=== PATIENT | female | born 1990 | race Caucasian/White ===

== ENCOUNTER 2023-06-14 08:25 | Observation (INO) | payer MEDICAID, SELFPAY ==
--- NOTE | ~2023-06-14 | CT_ITS ---
EXAMINATION: CT ABDOMEN AND PELVIS WITH CONTRAST CLINICAL INFORMATION: 32-year-old female with right lower quadrant abdominal pain COMPARISON: None available. TECHNIQUE: Multidetector volumetric images were obtained from the superior aspect of the liver through the pubic symphysis following administration 85 mL of Omnipaque 350 intravenous contrast. Sagittal and coronal reformatted images were obtained on the technologist's workstation. Oral contrast: No This CT examination was performed using dose optimization techniques as appropriate, variously including the following: *Automated exposure control *Adjustment of mA and/or kV according to patient size (this includes techniques or standardized protocols for targeted exams where dose is matched to indication/reason for exam; i.e. extremities or head) *Use of iterative reconstruction technique DLP: 452 mGy-cm FINDINGS: LUNG BASES: The visualized lung bases are unremarkable. LIVER, GALLBLADDER, AND BILIARY TREE: The liver is enlarged of normal shape and attenuation. No focal hepatic lesion or biliary ductal dilatation is present. There is cholelithiasis with large circumferentially calcified stone in the lumen of gallbladder, measured 2.0 x 1.7 cm. There is no evidence of cholecystitis. CBD is not dilated. PANCREAS: There is mildly dilated pancreatic duct, measured in the body 0.4 cm SPLEEN: Unremarkable. ADRENAL GLANDS: Unremarkable. KIDNEYS AND URETERS: The kidneys are normal in size, shape, and attenuation. No hydronephrosis, hydroureter, or calculi seen. No perinephric stranding. BLADDER: Unremarkable. GASTROINTESTINAL TRACT: The small and large bowel are unremarkable. The appendix is borderline measured between 0.7 and 1.0 cm not well seen and surrounded by hazy mesentery (see images 31-34 series 7.) Findings are suspicious for acute appendicitis. Small bowel loops are mildly dilated most likely due to ileus. Mesentery in the right lower abdomen and pelvis is hazy. There is no mesenteric lymphadenopathy. ABDOMINAL WALL: No significant hernia is appreciated. LYMPH NODES: Normal. VASCULAR: Unremarkable. PELVIC VISCERA: Uterus is edematous with mildly thickened endometrial, with fluid within the endometrial. There is no fluid in cul-de-sac. Right adnexa revealed 2.6 x 2.0 cm cyst. OSSEOUS STRUCTURES: There are degenerative changes at the level of L5-S1 CT/CT abdomen pelvis w IV con IMPRESSION: 1. Findings suspicious for acute appendicitis. 2. Cholelithiasis without evidence of cholecystitis. 3. Right adnexal cyst. 4. Mild hepatomegaly. 5. Mildly dilated pancreatic duct. Fleischner guidelines were followed.
[2023-06-14 08:41] VITALS: BP 117/59; PULSE 76; RESP 16; TEMP 36.9; O2SAT 97; BMI 25.2
[2023-06-14 09:01] LABS: MANUAL DIFF FLAG NO
[2023-06-14 09:02] LABS: Basophils Percent Auto 0.2 % (0-2); Eosinophils Absolute Auto 0.1 X10*3/uL (0.0-0.4); Eosinophils Percent Auto 0.8 % (0-4); Hematocrit 33.1 % (37.0-47.0); Hemoglobin 11.1 g/dl (12.0-16.0); Imm Gran Abs Auto 0.06 X10*3/uL (0.00-0.03); Imm Gran Pct Auto 0.4 % (0.0-0.4); Lymphocytes Absolute Auto 2.2 X10*3/uL (1.2-4.9); Lymphocytes Percent Auto 13.3 % (20-40); Mean Corpuscular HGB Conc 33.5 g/dl (31.0-35.0); Mean Corpuscular Hemoglobin 29.8 pg (27.0-33.0); Mean Platelet Volume 9.2 fL (9.4-12.3); Monocytes Absolute Auto 0.7 X10*3/uL (0.1-1.2); Monocytes Percent Auto 3.9 % (2-11); Neutrophils Absolute Auto 13.5 x10*3/uL (2.0-8.3); Neutrophils Percent Auto 81.4 % (45-73); Platelet Count 276 X10*3/uL (160-400); Red Blood Count 3.72 X10*6/uL (4.20-5.50); Red Cell Distribution Width 12.4 % (11.0-16.0); White Blood Count 16.6 X10*3/uL (4.8-10.8)
--- NOTE | 2023-06-14 09:04 | ED_ITS ---
HPI - Abdominal Pain General Chief Complaint: General Medical Stated Complaint: R Side Lower Abd Pain to Back Time Seen by Provider: 06/14/23 08:35 Source: patient Mode of arrival: ambulatory Limitations: no limitations History of Present Illness HPI narrative: 32 yo female with no sig PMH notes she is due for her menses and prior to that she normally has lower abdominal pain but this seems much worse. She has no dysuria. For the past few days she has RUQ pain which is new it wraps around the back with nausea and she cannot get comfortable and she cannot eat. This has never happened before. She has no diarrhea and no fevers she just feels terrible. She wants to know if she is too she has a new sexual partner but no vaginal discharge. She is not on OCPs. Her grandmother saw her today and told her she looks ill and needs to get checked out. MD elicited complaint: abdominal pain Pertinent past history: none Onset (ago): day(s) (3) Pain Consistency: constant Location: RUQ and RLQ Severity: moderate Quality: stabbing Radiation: R flank Migration to: no migration Exacerbating factors: eating Relieving factors: nothing Associated symptoms: nausea Related Data Allergies Allergy/AdvReac Type Severity Reaction Status Date / Time No Known Allergies Allergy Verified 06/14/23 08:43 Review of Systems Review of Systems Constitutional : No Weight loss, No Fever, No Chills ENT/Mouth : No sore throat, No Rhinorrhea Eyes: No Swelling, No Redness Cardiovascular : No Chest Pain, No SOB, NoEdema Respiratory : No Cough, No Sputum, No Wheezing Gastrointestinal : Positive Nausea, no Vomiting, no Diarrhea, positive abdominal Pain, No Hematochezia, No Melena Genitourinary : No Dysuria, No Urinary Frequency, No Hematuria, No Urgency Musculoskeletal : No joint pain, No Myalgias, No Joint Swelling Skin : No Skin Lesions, No rash Neuro : No Weakness, No Numbness, No Dizziness, No Headache Psych : No Anxiety/Panic, No Depression Heme/Lymph: No Bruising, No Lymphadenopathy Endocrine : No Polyuria, No Polydipsia All other systems reviewed and are negative. [facility] Past Medical History Attestation statement: The following information was validated with the patient. Medical History Painful menstrual periods Social History Social History (Updated 06/14/23 @ 09:08 by Karena Ashley DO) Patient Tobacco Use Status: Never used Tobacco Advance Directives: No Advance Directives Information Provided: Yes Physical Exam ED Vital Signs: Vital Signs - 24 hr 06/14/23 08:41 Temperature 98.5 F Pulse Rate 76 Respiratory Rate 16 Blood Pressure 117/59 L Pulse Oximetry 97 Oxygen Delivery Method Room Air BMI result Body Mass Index 25.2 Appearance: Alert. Oriented X3. No acute distress. Eyes: Pupils equal, round and reactive to light. ?scleral icterus ENT: Pharynx normal. Neck: Normal inspection. Neck supple. CVS: Normal heart rate and rhythm. Pulses normal. Respiratory: No respiratory distress. Breath sounds normal. Abdomen: Soft and moderate RLQ ttp with guarding no rebound and moderate RUQ pain Skin: Skin warm and dry. pale skin color. Normal skin turgor. Extremities: No lower extremity edema. No calf ttp Neuro: Oriented X 3. No motor deficit. No sensory deficit. Course Course Course Narrative: IV morphine for pain improved Medical Decision Making Medical Decision Making MDM Narrative: 32 yo female with no sig PMH no surgeries here with c/o RUQ and RLQ pain x 3 days worsening she tried to ignore it but feels awful now with nausea and not able to eat. She has no fevers, this has never happened before. She is asking for STI testing but no symptoms. At this time labs, IV morphine for pain, CT scan for possible appendicitis/cholecystitis. Differential Diagnosis Differential Diagnoses: The differential diagnosis associated with the presentation includes renal colic, appendicitis, pyelo, biliary colic Admission/Observation Consideration of admission/observation: Escalation of care including admission/observation considered admit Consult Healthcare Provider Management of the patient was discussed with: Fire Crew Worker (Dr. Wood to admit) Lab Data [facility] Lab Attestation statement: I reviewed the patient's lab results. 06/14/23 08:57 06/14/23 08:57 Labs: Lab Results 06/14/23 06/14/23 Range/Units 08:57 09:08 WBC 16.6 H (4.8-10.8) X10*3/uL RBC 3.72 L (4.20-5.50) X10*6/uL Hgb 11.1 L (12.0-16.0) g/dl Hct 33.1 L (37.0-47.0) % MCV 89.0 (80.0-98.0) fL MCH 29.8 (27.0-33.0) pg MCHC 33.5 (31.0-35.0) g/dl RDW 12.4 (11.0-16.0) % Plt Count 276 (160-400) X10*3/uL MPV 9.2 L (9.4-12.3) fL Immature Gran % (Auto) 0.4 (0.0-0.4) % Neut % (Auto) 81.4 H (45-73) % Lymph % (Auto) 13.3 L (20-40) % [place] % (Auto) 3.9 (2-11) % Eos % (Auto) 0.8 (0-4) % Baso % (Auto) 0.2 (0-2) % Lymph # (Auto) 2.2 (1.2-4.9) X10*3/uL [place] # (Auto) 0.7 (0.1-1.2) X10*3/uL Eos # (Auto) 0.1 (0.0-0.4) X10*3/uL Baso # (Auto) 0.0 (0.0-0.2) X10*3/uL Abs Immat Gran (auto) 0.06 H (0.00-0.03) X10*3/uL Absolute Neuts (auto) 13.5 H (2.0-8.3) x10*3/uL Absolute Nucleated RBC 0.000 (0.0-0.012) X10*3/uL Nucleated RBC % (auto) 0.0 (0.0-0.2) /100WBC Sodium 136 (135-145) mmol/L Potassium 3.6 (3.3-5.1) mmol/L Chloride 105 (96-108) mmol/L Carbon Dioxide 24 (22-29) mmol/L Anion Gap 11 L (12-20) BUN 10 (9-16) mg/dL Creatinine 0.65 (0.5-1.4) mg/dL Estim Creat Clear Calc 110.1 Estimated GFR > 60 Random Glucose 89 (60-115) mg/dL Calcium 9.0 (8.4-10.2) mg/dL Magnesium 1.9 (1.6-2.6) mg/dL Total Bilirubin 0.3 (0.0-1.0) mg/dL Direct Bilirubin 0.2 (0.0-0.5) mg/dL AST 18 (5-31) U/L ALT 12 (0-31) U/L Alkaline Phosphatase 83 (39-117) U/L Total Protein 7.5 (6.5-8.0) g/dL Albumin 4.2 (3.5-5.0) g/dL Lipase 84 H (8-78) U/L Beta HCG, Quant < 2 mIU/mL Urine Color Dark Yellow Urine Appearance Clear Urine pH 6.0 (5.0-9.0) Ur Specific [place] >= 1.030 H (1.005-1.025) Urine Protein 30 (1+) H (Neg-Trace) mg/dL Urine Glucose (UA) Negative (Negative) mg/dL Urine Ketones Trace (Negative) mg/dL Urine Blood Small (1+) H (Negative) Urine Nitrite Negative (Negative) Ur Leukocyte Esterase Moderate (2+) H (Negative) Urine RBC 3-5 H (0-2) /HPF Urine WBC 0-5 (0-5) /HPF Ur Squamous Epith Cells 11-20 (0-2) /HPF Urine Bacteria 1+ (None Seen) Hyaline Casts 0-2 (0-2) /LPF Independent Interpretation I performed an independent interpretation of an: CT Scan (biliary colic and appendicitis) Radiology Impression Discussion of test interpretation with radiology: I have reviewed the radiologist's reading. Medications Administered Discontinued Medications Generic Name Dose Route Start Last Admin Trade Name Freq PRN Reason Stop Dose Admin Lactated Ringer's 1,000 mls @ 999 mls/hr 06/14/23 09:00 06/14/23 10:10 Lr IV 06/14/23 10:00 Infused .Q1H1M CHRISTOPHER Infusion Iohexol 85 ml 06/14/23 09:51 06/14/23 09:51 Iohexol 350 Mg/Ml 100 Ml Infus..Btl IV 06/14/23 09:52 85 ml ONCE ONE Administration Morphine Sulfate 4 mg 06/14/23 08:47 06/14/23 09:07 Morphine Sulfate 4 Mg/Ml Cartridge IVPUSH 06/14/23 08:48 4 mg ONCE ONE Administration Protocol Ondansetron HCl 4 mg 06/14/23 08:47 06/14/23 09:07 Ondansetron Hcl 4 Mg/2 Ml Vial IVPUSH 06/14/23 08:48 4 mg ONCE ONE Administration Critical Care Time Critical Care Time Critical Care Time: Yes Total Critical Care Time: 35 Attestation: IV morphine improved pain, surgical consult and admission I attest to this time spent taking care of the patient Discharge Plan Discharge Clinical Impression: Biliary colic Acute appendicitis Qualifiers: Acute appendicitis type: with localized peritonitis Appendicitis gangrene presence: without gangrene Appendicitis perforation presence: without perforation Appendicitis abscess presence: without abscess Qualified Code(s): K 35.30 - Acute appendicitis with localized peritonitis, without perforation or gangrene Patient Disposition: Admitted As Inpatient
[2023-06-14] MEDS: Lactated Ringers 1,000 ML 999 ML IV (09:07)
[2023-06-14] MEDS: ondansetron HCL 4 MG/2 ML VIAL IVPUSH ×2 (09:07→17:05)
[2023-06-14] MEDS: Morphine Sulfate 4 MG/ML CARTRIDGE IVPUSH (09:07)
[2023-06-14 09:16] LABS: Appearance Urine Clear; Color Urine Dark Yellow; Glucose Urine UA Negative (Negative); Leukocyte Esterase Urine Moderate (2+) (Negative); Nitrite Urine Negative (Negative); Specific Gravity - Urine >= 1.030 (1.005-1.025); UMIC TRIGGER UACC YES; Urine Blood Small (1+) (Negative); Urine Ketones Trace mg/dL (Negative); Urine Protein 30 (1+) mg/dL (Neg-Trace)
[2023-06-14 09:17] LABS: Alanine Aminotransferase 12 U/L (0-31); Albumin Level 4.2 g/dL (3.5-5.0); Alkaline Phosphatase 83 U/L (39-117); Anion Gap 11 (12-20); Aspartate Amino Transferase 18 U/L (5-31); Bilirubin Direct 0.2 mg/dL (0.0-0.5); Bilirubin Total 0.3 mg/dL (0.0-1.0); Blood Urea Nitrogen 10 mg/dL (9-16); Carbon Dioxide 24 mmol/L (22-29); Chloride 105 mmol/L (96-108); Creatinine Clr Calc Pharmacy 110.1; Estimated Glomerular Filt Rate > 60; Glucose Random 89 mg/dL (60-115); Lipase 84 U/L (8-78); Magnesium 1.9 mg/dL (1.6-2.6); Potassium 3.6 mmol/L (3.3-5.1); Sodium 136 mmol/L (135-145); Total Protein 7.5 g/dL (6.5-8.0)
[2023-06-14 09:30] LABS: HCG Quantitative < 2 mIU/mL
[2023-06-14 09:39] LABS: Bacteria Urine 1+ (None Seen); Hyaline Casts Urine 0-2 /LPF (0-2); WBC Urine 0-5 /HPF (0-5)
[2023-06-14] MEDS: iohexoL 350 MG/ML 100 ML INFUS..BTL 85 ML IV (09:51)
--- NOTE | 2023-06-14 10:22 | PC.NURSE ---
pt a&o x4, calm, and cooperative. reporting 10/10 lower abdominal pain that wraps around R flank to lower back. 20G placed to the pt's LAC, labs drawn and sent. UA obtained. pt given morphine and LR per mar. when reassessing pain, pt sts pain did decrease for a small amount of time but is back to 10/10.
[2023-06-14 10:55] VITALS: BP 125/57; PULSE 65; RESP 16; O2SAT 98
[2023-06-14] MEDS: Piperacillin Sodium/Tazobactam 3.375 GM in 0.9 % Sodium Chloride 50 ML IV (10:55)
[2023-06-14] MEDS: Lactated Ringers 1,000 ML 100 ML IVCONT (11:04)
[2023-06-14 11:05] LABS: Lactic Acid 0.8 mmol/L (0.5-2.0)
--- NOTE | 2023-06-14 11:09 | PC.NURSE ---
blood cultures obtained, abx hung per oct. 20G IV placed to pt's RAC and 20G IV previously placed to pt's LAC by Ursula Caldwell RN. LR running per oct. pt currently resting quietly on stretcher in no apparent distress. pt aware of plan of care. call vo within pt reach. plan of care ongoing.
--- NOTE | 2023-06-14 11:18 | PHA.MEDREC ---
Pharmacy Consult ? Medication Reconciliation Pharmacy has completed the medication reconciliation. Spoke to patient at bedside, she was able to confirm all meds
[2023-06-14] MEDS: Dextrose 5 % and Lactated Ring 1,000 ML 125 ML IVCONT ×2 (12:08→20:07)
[2023-06-14] MEDS: HYDROmorphone HCl 0.5 MG/0.5 ML SYRINGE IVPUSH ×4 (12:16→23:08)
[2023-06-14 12:19] VITALS: BP 109/48; PULSE 62; RESP 16; O2SAT 98
--- NOTE | 2023-06-14 12:20 | P.HPGS_ITS ---
History of Present Illness History of Present Illness Date of Service: 06/14/23 Chief complaint: acute cholecystitis acute appendicitis Narrative: Jill Leiva is a 32 year old female presenting with complaints of abdominal pain in the right upper quadrant and right lower quadrant. She reports having pain in the right upper quadrant intermittently for several years but feels this is now increased in severity and is now so she would with nausea and vomiting. She reports drinking large amounts of Coca-[employer] and feels this may have contributed to her abdominal symptoms. She reports nausea and vomiting with decreased appetite. She also reports increased pain with fatty food intake. Over the past 24 hours he also developed lower abdominal pain initially felt she was and cramps associated with her menstrual cycle. When this did not improve she presented to the emergency department. Workup in the ED revealed elevated WBC of 16 K. examination did revealed tenderness in the upper abdomen and lower. CT abdomen and pelvis revealed a mildly dilated appendix with some inflammatory changes surrounding it suggestive of early appendicitis. A large gallstone was noted in the gallbladder with no secondary evidence of acute cholecystitis. The patient is admitted to surgical service for management upper abdominal pain. Review of Systems Review of Systems: Yes all other systems are reviewed and are negative Constitutional: Constitutional: Denies chills, Denies fever(s), Denies headache(s), Denies poor appetite and Denies weakness ENT: Denies headache(s) Cardiovascular: Cardiovascular: Denies chest pain, Denies irregular heart rhythm, Denies palpitations and Denies dyspnea Respiratory: Respiratory: Denies cough, Denies excessive phlegm production and Denies dyspnea Gastrointestinal: Gastrointestinal: Reports as per HPI, Reports abdominal pain, Reports bloating, Denies change in bowel habits, Denies constipation, Denies heartburn, Denies diarrhea, Reports nausea and Reports vomiting Genitourinary: Genitourinary: Denies urinary frequency Musculoskeletal: Musculoskeletal: Denies back pain, Denies muscle weakness and Denies numbness Integumentary/Breasts: Skin/Breast: Denies changing lesions and Denies unusual bruising Neurologic: Denies headache(s), Denies numbness, Denies paresthesias and Denies weakness Psychiatric: Psychiatric: Denies anxiety and Denies depression Endocrine: Endocrine: Denies palpitations Hematologic/Lymphatic: Hematologic/Lymphatic: Denies lymphadenopathy PMFSH Past Medical History Medical History Painful menstrual periods Social History Social History (Updated 06/14/23 @ 09:08 by Karena Ashley DO) Patient Tobacco Use Status: Never used Tobacco Smoked in Last 30 Days: No Use of substances other than those prescribed or required for medical reasons: Yes Substance Use Type: Marijuana Advance Directives: No Advance Directives Information Provided: Yes Meds Allergies Allergy/AdvReac Type Severity Reaction Status Date / Time No Known Allergies Allergy Verified 06/14/23 08:43 Active Medications: Current Medications Hydromorphone HCl (Hydromorphone Hcl 0.5 Mg/0.5 Ml Syringe) 0.5 mg IVPUSH Q3H PRN; Protocol PRN Reason: Pain, Severe (Pain Scale 7-10) Last Admin: 06/14/23 12:16 Dose: 0.5 mg Lactated Ringer's (Lr) 1,000 mls @ 100 mls/hr IVCONT .Q10H CHRISTOPHER Last Infusion: 06/14/23 12:04 Dose: Infused Acetaminophen (Ofirmev) 1,000 mg in 100 mls @ 400 mls/hr IV Q6H CHRISTOPHER Dextrose/Lactated Ringer's (D5lr) 1,000 mls @ 125 mls/hr IVCONT .Q8H CHRISTOPHER Last Admin: 06/14/23 12:08 Dose: 125 mls/hr Ondansetron HCl (Ondansetron Hcl 4 Mg/2 Ml Vial) 4 mg IVPUSH QID PRN PRN Reason: Nausea Oxycodone HCl (Oxycodone Hcl Immed Release 5 Mg Tablet) 5 mg PO Q6H PRN PRN Reason: Pain, Moderate(Pain Scale 4-6) Sodium Chloride (0.9 % Sodium Chloride Flush 3 Ml Syringe) 3 ml IVFLUSH QSHIFT CHRISTOPHER Zolpidem Tartrate (Zolpidem Tartrate 5 Mg Tablet) 5 mg PO BEDTIME PRN PRN Reason: Insomnia Home Medications Medication Instructions Recorded Confirmed Last Taken Type cholecalciferol (vitamin D3) 50 50 mcg PO DAILY 06/14/23 06/14/23 06/13/23 History mcg (2,000 unit) capsule hydroxyzine HCl 50 mg tablet 100 mg PO BEDTIME 06/14/23 06/14/23 06/13/23 History vitamin with calcium 1 tab PO DAILY 06/14/23 06/14/23 06/13/23 History no.72-iron 27 mg-folic acid 1 mg tablet (M- Plus) venlafaxine 150 mg 150 mg PO DAILY 06/14/23 06/14/23 06/13/23 History capsule,extended release 24 hr Physical Exam Vital Signs: Vital Signs: Last Vital Signs Temp 98.5 F 06/14/23 08:41 Pulse 62 06/14/23 12:19 Resp 16 06/14/23 12:19 BP 109/48 L 06/14/23 12:19 Pulse Ox 98 06/14/23 12:19 O2 Del Method Room Air 06/14/23 12:19 BMI result Body Mass Index 25.2 Const: General: cooperative and no acute distress Nutritional Appearance: well nourished Orientation/consciousness: patient oriented x3 Limitations: no limitations HEENT: Head: Yes normocephalic and Yes atraumatic Ears: hearing grossly normal bilaterally Resp: Effort & Inspection: normal respiratory effort, no audible wheezes, no cough and no respiratory distress Cardio: Jugular venous distension: no JVD GI: Inspection: Yes normal to inspection Palpation (GI): Soft to palpation, Tenderness to palpation present (GI) in the LLQ, in the RLQ and in the RUQ; not in the LUQ, not at McBurney's point and Langston's sign negative, no guarding and no masses Percussion: Yes normal to percussion Auscultation: normal bowel sounds Skin: Other: Warm, dry, no rash Neuro: General: patient oriented x3 Extrem: General: Yes no clubbing, cyanosis or edema Results Results Labs: Short CBC 06/14/23 Range/Units 08:57 WBC 16.6 H (4.8-10.8) X10*3/uL Hgb 11.1 L (12.0-16.0) g/dl Hct 33.1 L (37.0-47.0) % Plt Count 276 (160-400) X10*3/uL BMP 06/14/23 08:57 Sodium 136 Potassium 3.6 Chloride 105 Carbon Dioxide 24 BUN 10 Creatinine 0.65 Calcium 9.0 Liver Function 06/14/23 Range/Units 08:57 Total Bilirubin 0.3 (0.0-1.0) mg/dL Direct Bilirubin 0.2 (0.0-0.5) mg/dL AST 18 (5-31) U/L ALT 12 (0-31) U/L Alkaline Phosphatase 83 (39-117) U/L Albumin 4.2 (3.5-5.0) g/dL Urine 06/14/23 Range/Units 09:08 Urine Color Dark Yellow Urine Appearance Clear Urine pH 6.0 (5.0-9.0) Ur Specific [place] >= 1.030 H (1.005-1.025) Urine Protein 30 (1+) H (Neg-Trace) mg/dL Urine Glucose (UA) Negative (Negative) mg/dL Assessment and Plan (1) Biliary colic: Status: Acute (2) Acute appendicitis: Qualifiers: Acute appendicitis type: with localized peritonitis Appendicitis abscess presence: without abscess Appendicitis gangrene presence: without gangrene Appendicitis perforation presence: without perforation Qualified Code(s): K35.30 - Acute appendicitis with localized peritonitis, without perforation or gangrene Status: Acute Plan 32-year-old female patient presenting with complaints of abdominal pain chronic and acute with increased severity over the past 24 hours. Workup revealed evidence of both biliary colic and possibly early appendicitis. Review the CT revealed mild dilatation of the appendix but no fecalith. Patient is a candidate for non operative management with IV antibiotics. I have reviewed the options in detail and she is agreeable to admission for IV antibiotics. If her symptoms improve she will be discharged home on oral antibiotics. Will recheck CBC in a.m. Quality Stroke Does the patient have a stroke diagnosis?: No VTE Prior VTE?: No VTE Risk Level:: Surgical - low VTE Device Contraindication: N/A - Device Ordered VTE Drug Contraindication: Treatment Not Indicated Procedures Date of Service Date of Service: 06/14/23
--- NOTE | 2023-06-14 12:46 | PC.NURSE ---
pt medicated per mar for pain. currently resting quietly on stretcher in no apparent distress. awaiting bed assignment. call vo within pt reach. pt talking on the phone.
[2023-06-14 12:49] LABS: CT PCR DETECTED (Not Detect.); NG PCR NOT DETECTED (Not Detect.)
--- NOTE | 2023-06-14 15:40 | PC.NURSE ---
[id number] report given to EARL Tiwari.
[2023-06-14 16:10] VITALS: BP 122/58; PULSE 76; RESP 18; TEMP 37.3; O2SAT 98
[2023-06-14 17:00] VITALS: BMI 25.2
[2023-06-14] MEDS: Acetaminophen 1,000 MG/100 ML PIGGYBACK 400 MG IV ×2 (17:05→23:07)
[2023-06-14 19:55] VITALS: BP 106/70; PULSE 73; RESP 18; TEMP 36.6; O2SAT 99
[2023-06-14] MEDS: 0.9 % Sodium Chloride Flush 3 ML SYRINGE IVFLUSH (23:08)
[2023-06-15] VITALS (10 sets, daily range): BP systolic 112–141; BP diastolic 48–90; PULSE 69–96; RESP 16–20; TEMP 36–37.5; O2SAT 93–99
[2023-06-15] MEDS: Acetaminophen 1,000 MG/100 ML PIGGYBACK 400 MG IV ×3 (04:11→22:27)
[2023-06-15] MEDS: HYDROmorphone HCl 0.5 MG/0.5 ML SYRINGE IVPUSH ×6 (04:11→20:48)
[2023-06-15] MEDS: Dextrose 5 % and Lactated Ring 1,000 ML 125 ML IVCONT ×3 (04:11→20:46)
[2023-06-15] MEDS: ondansetron HCL 4 MG/2 ML VIAL IVPUSH ×2 (04:17→14:16)
[2023-06-15 06:42] LABS: Hematocrit 31.1 % (37.0-47.0); Hemoglobin 10.2 g/dl (12.0-16.0); Mean Corpuscular HGB Conc 32.8 g/dl (31.0-35.0); Mean Corpuscular Hemoglobin 29.6 pg (27.0-33.0); Mean Corpuscular Volume 90.1 fL (80.0-98.0); Platelet Count 266 X10*3/uL (160-400); Red Blood Count 3.45 X10*6/uL (4.20-5.50); Red Cell Distribution Width 12.4 % (11.0-16.0)
--- NOTE | 2023-06-15 08:11 | P.PNGS_ITS ---
Subjective Subjective Date of Service: 06/15/23 Interval history: patient reports developing increased abdominal pain in the lower abdomen during the night, felt in a bandlike fashion in lower abdomen, right greater than left. No longer has symptoms in the right upper quadrant. Physical Exam 2 Vital Signs: Vital Signs: Last Vital Signs Temp 97.8 F 06/15/23 07:27 Pulse 73 06/15/23 07:27 Resp 16 06/15/23 07:27 BP 141/90 H 06/15/23 07:27 Pulse Ox 96 06/15/23 07:27 O2 Del Method Room Air 06/15/23 07:27 BMI result Body Mass Index 25.2 Const: General: ill appearing and tired appearing Nutritional Appearance: w ell nourished Orientation/consciousness: patient oriented x3 Limitations: no limitations Resp: Effort & Inspection: normal respiratory effort, no audible wheezes, no cough and no respiratory distress GI: Inspection: Yes normal to inspection Palpation (GI): Soft to palpation and Tenderness to palpation present (GI) in the LLQ, in the RLQ and at McBurney's point Percussion: Yes normal to percussion Auscultation: a bnormal bowel sounds Rectal Exam - Female: deferred Neuro: General: patient oriented x3 Extrem: General: No edema Objective Data Active Medications Hydromorphone HCl (Hydromorphone Hcl 0.5 Mg/0.5 Ml Syringe) 0.5 mg IVPUSH Q3H PRN; Protocol PRN Reason: Pain, Severe (Pain Scale 7-10) Last Admin: 06/15/23 07:40 Dose: 0.5 mg Documented By: DEXTER Lactated Ringer's (Lr) 1,000 mls @ 100 mls/hr IVCONT .Q10H [facility] Last Admin: 06/15/23 05:22 Dose: Not Given Documented By: RALPH Non-Admin Reason: IV Running Acetaminophen (Ofirmev) 1,000 mg in 100 mls @ 400 mls/hr IV Q6H [facility] Last Infusion: 06/15/23 04:29 Dose: Infused Documented By: RALPH Dextrose/Lactated Ringer's (D5lr) 1,000 mls @ 125 mls/hr IVCONT .Q8H [facility] Last Admin: 06/15/23 04:11 Dose: 125 mls/hr Documented By: RALPH Ondansetron HCl (Ondansetron Hcl 4 Mg/2 Ml Vial) 4 mg IVPUSH QID PRN PRN Reason: Nausea Last Admin: 06/15/23 04:17 Dose: 4 mg Documented By: RALPH Oxycodone HCl (Oxycodone Hcl Immed Release 5 Mg Tablet) 5 mg PO Q6H PRN PRN Reason: Pain, Moderate(Pain Scale 4-6) Sodium Chloride (0.9 % Sodium Chloride Flush 3 Ml Syringe) 3 ml IVFLUSH QSHIFT [facility] Last Admin: 06/15/23 07:49 Dose: Not Given Documented By: DEXTER Non-Admin Reason: IV Running Zolpidem Tartrate (Zolpidem Tartrate 5 Mg Tablet) 5 mg PO BEDTIME PRN PRN Reason: Insomnia Labs 06/15/23 06:04 06/14/23 08:57 Labs: Laboratory Results - last 24 hr 06/14/23 06/14/23 06/14/23 08:57 09:08 10:50 MCV 89.0 MCH 29.8 MCHC 33.5 RDW 12.4 Plt Count 276 MPV 9.2 L Immature Gran % (Auto) 0.4 Neut % (Auto) 81.4 H Lymph % (Auto) 13.3 L [place] % (Auto) 3.9 Eos % (Auto) 0.8 Baso % (Auto) 0.2 Lymph # (Auto) 2.2 [place] # (Auto) 0.7 Eos # (Auto) 0.1 Baso # (Auto) 0.0 Abs Immat Gran (auto) 0.06 H Absolute Neuts (auto) 13.5 H Absolute Nucleated RBC 0.000 Nucleated RBC % (auto) 0.0 Anion Gap 11 L Estim Creat Clear Calc 110.1 Estimated GFR > 60 Random Glucose 89 Lactic Acid 0.8 Calcium 9.0 Magnesium 1.9 Total Bilirubin 0.3 Direct Bilirubin 0.2 AST 18 ALT 12 Alkaline Phosphatase 83 Total Protein 7.5 Albumin 4.2 Lipase 84 H Beta HCG, Quant < 2 Urine Color Dark Yellow Urine Appearance Clear Urine pH 6.0 Ur Specific [place] >= 1.030 H Urine Protein 30 (1+) H Urine Glucose (UA) Negative Urine Ketones Trace Urine Blood Small (1+) H Urine Nitrite Negative Ur Leukocyte Esterase Moderate (2+) H Urine RBC 3-5 H Urine WBC 0-5 Ur Squamous Epith Cells 11-20 Urine Bacteria 1+ Hyaline Casts 0-2 Chlam trachomat DNA PCR DETECTED A N.gonorrhoeae DNA (PCR) NOT DETECTED 06/15/23 06:04 MCV 90.1 MCH 29.6 MCHC 32.8 RDW 12.4 Plt Count 266 MPV 10.0 Immature Gran % (Auto) Neut % (Auto) Lymph % (Auto) [place] % (Auto) Eos % (Auto) Baso % (Auto) Lymph # (Auto) [place] # (Auto) Eos # (Auto) Baso # (Auto) Abs Immat Gran (auto) Absolute Neuts (auto) Absolute Nucleated RBC 0.000 Nucleated RBC % (auto) 0.0 Anion Gap Estim Creat Clear Calc Estimated GFR Random Glucose Lactic Acid Calcium Magnesium Total Bilirubin Direct Bilirubin AST ALT Alkaline Phosphatase Total Protein Albumin Lipase Beta HCG, Quant Urine Color Urine Appearance Urine pH Ur Specific [place] Urine Protein Urine Glucose (UA) Urine Ketones Urine Blood Urine Nitrite Ur Leukocyte Esterase Urine RBC Urine WBC Ur Squamous Epith Cells Urine Bacteria Hyaline Casts Chlam trachomat DNA PCR N.gonorrhoeae DNA (PCR) Procedures Date of Service Date of Service: 06/15/23 Progress Note: A&P Assessment and plan (1) Acute appendicitis: Status: Acute Plan 32-year-old female patient presenting with evidence of both biliary colic and early appendicitis admitted for IV antibiotics. Patient's WBC remains elevated her abdominal pain has increased in the lower quadrants. Findings are more suggestive of acute appendicitis then biliary colic. I recommended laparoscopic or possible open appendectomy. After discussion of the procedure, risks, and alternatives, she consents to the laparoscopic or possible open appendectomy. She has been added onto the operative schedule for this morning. Continue Zosyn IV. Time Spent With Patient Time: Total time managing care of this patient today ____ minutes. Quality Stroke Does the patient have a stroke diagnosis?: No VTE Prior VTE?: No VTE Risk Level:: Surgical - low VTE Device Contraindication: N/A - Device Ordered VTE Drug Contraindication: Treatment Not Indicated
--- NOTE | 2023-06-15 09:14 | HO.ANESPROP2 ---
PMF Active Problems Active Problems: All Active Problems (Updated 06/14/23 @ 10:25 by Karena Ashley DO) Biliary colic (Acute) Acute appendicitis (Acute) Past Medical History Medical History Painful menstrual periods Functional capacity: independent ambulation Patient : No Family History Family history of problems with anesthesia: No Surgical History History of Problems with Anesthesia: No Social History Social History Household Members: Family and Children Housing: House Do you presently have visiting nurse or other home services: No Patient Tobacco Use Status: Never used Tobacco Substance Use Type: IV Drugs Meds Allergies Allergy/AdvReac Type Severity Reaction Status Date / Time No Known Allergies Allergy Verified 06/14/23 08:43 Active Medications: Current Medications Hydromorphone HCl (Hydromorphone Hcl 0.5 Mg/0.5 Ml Syringe) 0.5 mg IVPUSH Q3H PRN; Protocol PRN Reason: Pain, Severe (Pain Scale 7-10) Last Admin: 06/15/23 07:40 Dose: 0.5 mg Lactated Ringer's (Lr) 1,000 mls @ 100 mls/hr IVCONT .Q10H [facility] Last Admin: 06/15/23 05:22 Dose: Not Given Acetaminophen (Ofirmev) 1,000 mg in 100 mls @ 400 mls/hr IV Q6H [facility] Last Infusion: 06/15/23 04:29 Dose: Infused Dextrose/Lactated Ringer's (D5lr) 1,000 mls @ 125 mls/hr IVCONT .Q8H [facility] Last Admin: 06/15/23 04:11 Dose: 125 mls/hr Ondansetron HCl (Ondansetron Hcl 4 Mg/2 Ml Vial) 4 mg IVPUSH QID PRN PRN Reason: Nausea Last Admin: 06/15/23 04:17 Dose: 4 mg Oxycodone HCl (Oxycodone Hcl Immed Release 5 Mg Tablet) 5 mg PO Q6H PRN PRN Reason: Pain, Moderate(Pain Scale 4-6) Sodium Chloride (0.9 % Sodium Chloride Flush 3 Ml Syringe) 3 ml IVFLUSH QSHIFT [facility] Last Admin: 06/15/23 07:49 Dose: Not Given Zolpidem Tartrate (Zolpidem Tartrate 5 Mg Tablet) 5 mg PO BEDTIME PRN PRN Reason: Insomnia Home Medications Medication Instructions Recorded Confirmed Last Taken Type cholecalciferol (vitamin D3) 50 50 mcg PO DAILY 06/14/23 06/14/23 06/13/23 History mcg (2,000 unit) capsule hydroxyzine HCl 50 mg tablet 100 mg PO BEDTIME 06/14/23 06/14/23 06/13/23 History vitamin with calcium 1 tab PO DAILY 06/14/23 06/14/23 06/13/23 History no.72-iron 27 mg-folic acid 1 mg tablet (M- Plus) venlafaxine 150 mg 150 mg PO DAILY 06/14/23 06/14/23 06/13/23 History capsule,extended release 24 hr Exam Exam Date and Time: June 15, 2023 0914 Height,Weight and Vital Signs: Height 5 ft 3 in Weight 64.41 kg Last Vital Signs Temp 97.8 F 06/15/23 07:27 Pulse 73 06/15/23 07:27 Resp 16 06/15/23 07:27 BP 141/90 H 06/15/23 07:27 Pulse Ox 96 06/15/23 07:27 O2 Del Method Room Air 06/15/23 07:27 Pertinent Lab Results Pertinent Lab Results: Laboratory Tests 06/14/23 06/14/23 06/14/23 08:57 09:08 10:50 WBC 16.6 H RBC 3.72 L Hgb 11.1 L Hct 33.1 L MCV 89.0 MCH 29.8 MCHC 33.5 RDW 12.4 Plt Count 276 MPV 9.2 L Immature Gran % (Auto) 0.4 Neut % (Auto) 81.4 H Lymph % (Auto) 13.3 L [place] % (Auto) 3.9 Eos % (Auto) 0.8 Baso % (Auto) 0.2 Lymph # (Auto) 2.2 [place] # (Auto) 0.7 Eos # (Auto) 0.1 Baso # (Auto) 0.0 Abs Immat Gran (auto) 0.06 H Absolute Neuts (auto) 13.5 H Absolute Nucleated RBC 0.000 Nucleated RBC % (auto) 0.0 Sodium 136 Potassium 3.6 Chloride 105 Carbon Dioxide 24 Anion Gap 11 L BUN 10 Creatinine 0.65 Estim Creat Clear Calc 110.1 Estimated GFR > 60 Random Glucose 89 Lactic Acid 0.8 Calcium 9.0 Magnesium 1.9 Total Bilirubin 0.3 Direct Bilirubin 0.2 AST 18 ALT 12 Alkaline Phosphatase 83 Total Protein 7.5 Albumin 4.2 Lipase 84 H Beta HCG, Quant < 2 Urine Color Dark Yellow Urine Appearance Clear Urine pH 6.0 Ur Specific [place] >= 1.030 H Urine Protein 30 (1+) H Urine Glucose (UA) Negative Urine Ketones Trace Urine Blood Small (1+) H Urine Nitrite Negative Ur Leukocyte Esterase Moderate (2+) H Urine RBC 3-5 H Urine WBC 0-5 Ur Squamous Epith Cells 11-20 Urine Bacteria 1+ Hyaline Casts 0-2 Chlam trachomat DNA PCR DETECTED A N.gonorrhoeae DNA (PCR) NOT DETECTED 06/15/23 06:04 WBC 16.0 H RBC 3.45 L Hgb 10.2 L Hct 31.1 L MCV 90.1 MCH 29.6 MCHC 32.8 RDW 12.4 Plt Count 266 MPV 10.0 Immature Gran % (Auto) Neut % (Auto) Lymph % (Auto) [place] % (Auto) Eos % (Auto) Baso % (Auto) Lymph # (Auto) [place] # (Auto) Eos # (Auto) Baso # (Auto) Abs Immat Gran (auto) Absolute Neuts (auto) Absolute Nucleated RBC 0.000 Nucleated RBC % (auto) 0.0 Sodium Potassium Chloride Carbon Dioxide Anion Gap BUN Creatinine Estim Creat Clear Calc Estimated GFR Random Glucose Lactic Acid Calcium Magnesium Total Bilirubin Direct Bilirubin AST ALT Alkaline Phosphatase Total Protein Albumin Lipase Beta HCG, Quant Urine Color Urine Appearance Urine pH Ur Specific [place] Urine Protein Urine Glucose (UA) Urine Ketones Urine Blood Urine Nitrite Ur Leukocyte Esterase Urine RBC Urine WBC Ur Squamous Epith Cells Urine Bacteria Hyaline Casts Chlam trachomat DNA PCR N.gonorrhoeae DNA (PCR) Airway Mallampati Class: II TM Dist: >3cm Neck ROM: Full Heart: RRR Lungs: CTA Assessment and Plan Final Anesthetic Review Family History of Problems with Anesthesia: No History of Problems with Anesthesia: No NPO: Yes ASA Class: II Final Preanesthetic Review: Meds/Allgs Chart Reviewed, Consent Obtained/Reviewed and Anes Risks/Benef Reviewed Patient Risk: Low Procedure Risk: Low Anesthetic Plan Anesthetic Plan: GA Disposition: Standard PACU
--- NOTE | 2023-06-15 10:55 | P.OP_ITS ---
Operative Note Operative Note Date of Service: 06/15/23 Narrative: Preoperative diagnosis: Acute appendicitis Postoperative diagnosis: Left pelvic abscess, pelvic inflammatory disease Procedure: Laparoscopic appendectomy, drainage of abscess left pelvis Surgeon: Dave Wood MD Boat Buffer Plastic: None Anesthesia: General endotracheal Indications for procedure: 32-year-old female patient presenting with complaints of abdominal pain in the lower abdomen found on CT to have a t hickened inflamed appendix and possible cholelithiasis. Patient was treated with IV antibiotics overnight however continued to have increased abdominal pain and presents today for laparoscopic appendectomy. Operative findings: Normal appearing appendix, normal appearing gallbladder, abscess associated with tubes and ovary Specimen: Appendix, abscess collection Estimated blood loss: 2 mL Complications: None Procedure details: Patient was brought to the OR and placed in a supine position. After administering general anesthesia the patient's abdomen was prepped with ChloraPrep and draped in a sterile fashion. A surgical time-out was called and consent confirmed. Patient received preoperative antibiotics and Venodyne boots were in place. Local anesthesia consisting of 0.75% Sensorcaine with epinephrine was infiltrated in periumbilical region. A 5 mm incision was made below the umbilicus and carried down through subcutaneous tissue. A Veress needle was then inserted while elevating abdominal cavity with towel clips. After a positive drop test the abdomen was insufflated to a pressure of 15 mm of mercury. The Veress needle was removed and a 5 mm trocar inserted. The camera was then inserted in the abdomen explored. A 2nd 5 mm trocars placed in the lower midline. A 12 mm trocar was then placed in the left lower quadrant. The patient was then placed in a Trendelenburg position and rotated to the left. The appendix was identified in the right lower quadrant and brought up using blunt dissecting clamps. The mesentery of the appendix was then divided using the LigaSure. The appendiceal artery was cauterized and divided using the LigaSure. Dissection was continued down to the base of the cecum. An Endo-COLIN stapler with a purple reload was then used to divide the appendix at the base with the cecum. The appendix was then placed in Endo-Catch bag and brought out through the left lower quadrant incision. The abdomen was then irrigated with saline solution and suctioned dry. Pelvic organs were examined and fluid noted in the pelvis above the uterus. Exploration of this area revealed inflammatory changes around the tube and ovary as well as a intra-abdominal pelvic collection. This was surrounded by phlegmon. Fluid was drained and cultures sent. Wounds were again irrigated and suctioned dry. Wounds were checked for hemostasis. CO2 was then evacuated from the abdominal cavity and all trocars removed. Skin was closed at all incisions using a subcuticular 4-0 Polysorb suture. Steri- Strips 2 x 2 gauze and Tegaderm were then applied. The patient tolerated the procedure well. Sponge, instrument, needle counts reported as correct. The patient was transferred to PACU in stable condition.
[2023-06-15] MEDS: cefoTEtan disodium 2 GM in 0.9 % Sodium Chloride 50 ML IV ×2 (11:11→21:51)
[2023-06-15] MEDS: Doxycycline Monohydrate 100 MG CAPSULE PO (13:13)
--- NOTE | 2023-06-15 15:04 | MHC.CM.PN ---
CM ATTEMPTED TO SEE PT WHO WAS SLEEPING CM TO REVISIT
[2023-06-15] MEDS: oxyCODONE HCl Immed Release 5 MG TABLET PO (15:41)
[2023-06-15] MEDS: hydrOXYzine HCL 50 MG TABLET 100 MG PO (20:48)
[2023-06-15] MEDS: 0.9 % Sodium Chloride Flush 3 ML SYRINGE IVFLUSH (22:28)
[2023-06-16] MEDS: Doxycycline Monohydrate 100 MG CAPSULE PO ×2 (00:02→12:23)
[2023-06-16] MEDS: Dextrose 5 % and Lactated Ring 1,000 ML 125 ML IVCONT (01:49)
[2023-06-16] MEDS: HYDROmorphone HCl 0.5 MG/0.5 ML SYRINGE IVPUSH ×4 (02:29→21:19)
[2023-06-16 04:00] VITALS: BP 125/69; PULSE 76; RESP 18; TEMP 36.4; O2SAT 98
[2023-06-16] MEDS: Acetaminophen 1,000 MG/100 ML PIGGYBACK 400 MG IV ×4 (04:15→23:49)
[2023-06-16 06:01] LABS: MANUAL DIFF FLAG NO
[2023-06-16 06:33] LABS: Basophils Percent Auto 0.2 % (0-2); Eosinophils Absolute Auto 0.1 X10*3/uL (0.0-0.4); Eosinophils Percent Auto 0.4 % (0-4); Hematocrit 26.3 % (37.0-47.0); Hemoglobin 8.8 g/dl (12.0-16.0); Imm Gran Abs Auto 0.16 X10*3/uL (0.00-0.03); Imm Gran Pct Auto 1.3 % (0.0-0.4); Lymphocytes Absolute Auto 2.3 X10*3/uL (1.2-4.9); Lymphocytes Percent Auto 18.3 % (20-40); Mean Corpuscular HGB Conc 33.5 g/dl (31.0-35.0); Mean Corpuscular Hemoglobin 30.1 pg (27.0-33.0); Mean Corpuscular Volume 90.1 fL (80.0-98.0); Mean Platelet Volume 10.1 fL (9.4-12.3); Monocytes Absolute Auto 0.5 X10*3/uL (0.1-1.2); Monocytes Percent Auto 4.1 % (2-11); Neutrophils Absolute Auto 9.4 x10*3/uL (2.0-8.3); Neutrophils Percent Auto 75.7 % (45-73); Platelet Count 266 X10*3/uL (160-400); Red Blood Count 2.92 X10*6/uL (4.20-5.50); Red Cell Distribution Width 12.5 % (11.0-16.0); White Blood Count 12.4 X10*3/uL (4.8-10.8)
[2023-06-16 07:28] VITALS: BP 133/83; PULSE 67; RESP 16; TEMP 36.8; O2SAT 98
--- NOTE | 2023-06-16 08:00 | PM.PNGS ---
Subjective Subjective Date of Service: 06/16/23 Interval history: Pelvic pain is improved although still present. She did have some nausea and vomiting initially after surgery but is improved currently. Physical Exam Vital Signs: Vital Signs: Last Vital Signs Temp 98.3 F 06/16/23 07:28 Pulse 67 06/16/23 07:28 Resp 16 06/16/23 07:28 BP 133/83 06/16/23 07:28 Pulse Ox 98 06/16/23 07:28 O2 Del Method Room Air 06/16/23 07:28 O2 Flow Rate 2 06/15/23 11:30 BMI result Body Mass Index 25.2 Const: General: no acute distress Nutritional Appearance: well nourished Orientation/consciousness: patient oriented x3 Resp: Effort & Inspection: normal respiratory effort, no audible wheezes, no cough and no respiratory distress GI: Other: Soft, madelyn-incisional tenderness, nondistended Skin: Other: warm and dry Neuro: General: patient oriented x3 Extrem: Other: normal capillary refill General: Yes normal to inspection Objective Data Active Medications Doxycycline Monohydrate (Doxycycline Monohydrate 100 Mg Capsule) 100 mg PO Q12H [facility] Last Admin: 06/16/23 00:02 Dose: 100 mg Documented By: RALPH Hydromorphone HCl (Hydromorphone Hcl 0.5 Mg/0.5 Ml Syringe) 0.5 mg IVPUSH Q3H PRN; Protocol PRN Reason: Pain, Severe (Pain Scale 7-10) Last Admin: 06/16/23 02:29 Dose: 0.5 mg Documented By: RALPH Hydroxyzine HCl (Hydroxyzine Hcl 50 Mg Tablet) 100 mg PO BEDTIME [facility] Last Admin: 06/15/23 20:48 Dose: 100 mg Documented By: RALPH Acetaminophen (Ofirmev) 1,000 mg in 100 mls @ 400 mls/hr IV Q6H [facility] Last Infusion: 06/16/23 04:37 Dose: Infused Documented By: RALPH Dextrose/Lactated Ringer's (D5lr) 1,000 mls @ 125 mls/hr IVCONT .Q8H [facility] Last Admin: 06/16/23 01:49 EST Dose: 125 mls/hr Documented By: RALPH Cefotetan Disodium 2 gm/ (Sodium Chloride) 50 mls @ 100 mls/hr IV Q12H [facility] Last Infusion: 06/15/23 22:29 Dose: Infused Documented By: RALPH Multivitamins/Vitamin C (Multivitamin Tablet) 1 tab PO DAILY [facility] Ondansetron HCl (Ondansetron Hcl 4 Mg/2 Ml Vial) 4 mg IVPUSH QID PRN PRN Reason: Nausea Last Admin: 06/15/23 14:16 Dose: 4 mg Documented By: DEXTER Oxycodone HCl (Oxycodone Hcl Immed Release 5 Mg Tablet) 5 mg PO Q6H PRN PRN Reason: Pain, Moderate(Pain Scale 4-6) Last Admin: 06/15/23 15:41 Dose: 5 mg Documented By: DEXTER Sodium Chloride (0.9 % Sodium Chloride Flush 3 Ml Syringe) 3 ml IVFLUSH QSHIFT [facility] Last Admin: 06/15/23 22:28 Dose: 3 ml Documented By: RALPH Venlafaxine HCl (Venlafaxine Hcl Er 150 Mg Cap.Er.24h) 150 mg PO DAILY [facility] Vitamin D (Cholecalciferol (Vitamin D3) 25 Mcg Tablet) 50 mcg PO DAILY [facility] Zolpidem Tartrate (Zolpidem Tartrate 5 Mg Tablet) 5 mg PO BEDTIME PRN PRN Reason: Insomnia Labs 06/16/23 05:56 06/14/23 08:57 Labs: Laboratory Results - last 24 hr 06/16/23 05:56 MCV 90.1 MCH 30.1 MCHC 33.5 RDW 12.5 Plt Count 266 MPV 10.1 Immature Gran % (Auto) 1.3 H Neut % (Auto) 75.7 H Lymph % (Auto) 18.3 L [place] % (Auto) 4.1 Eos % (Auto) 0.4 Baso % (Auto) 0.2 Lymph # (Auto) 2.3 [place] # (Auto) 0.5 Eos # (Auto) 0.1 Baso # (Auto) 0.0 Abs Immat Gran (auto) 0.16 H Absolute Neuts (auto) 9.4 H Absolute Nucleated RBC 0.000 Nucleated RBC % (auto) 0.0 Microbiology Microbiology Results: Microbiology 06/15/23 Unknown Gram Stain - Final Ovary Left 06/14/23 10:50 Blood Culture - Preliminary Blood - Venous No growth after 24 hours. 06/14/23 10:50 Blood Culture - Preliminary Blood - Venous No growth after 24 hours. 06/14/23 Unknown Urine Culture - Final Urine clean catch No growth. Procedures Date of Service Date of Service: 06/16/23 Progress Note: A&P Assessment and plan (1) Chlamydial pelvic inflammatory disease: Status: Acute Plan 32-year-old female patient presenting with lower abdominal pain with CT findings suggestive of early appendicitis. Patient had persistent elevated WBC and increased abdominal pain after 12 hours of observation. Patient subsequently underwent diagnostic laparoscopy with laparoscopic appendectomy. On exploration she was found to have a pelvic abscess collection which was cultured, drained, and washed out. This morning she is improved with decreased abdominal pain and improved WBC. Patient currently on Cefotetan and doxycycline. Gyne consultation is pending. Discussed OR findings with patient and boyfriend this morning. She will need continued IV Cefotetan, and po Doxy. Will stop IV Fluids. H&H noted to be decreased this morning. This appears to be related to rehydration related as blood loss was minimal during the procedure and she may have been dehydrated prior to the procedure. Will recheck CBC in AM. Await OR cultures. Time Spent With Patient Time: Total time managing care of this patient today ____ minutes. Quality Stroke Does the patient have a stroke diagnosis?: No VTE Prior VTE?: No VTE Risk Level:: Surgical - low VTE Device Contraindication: N/A - Device Ordered VTE Drug Contraindication: Treatment Not Indicated
[2023-06-16] MEDS: Venlafaxine HCl ER 150 MG CAP.ER.24H PO (08:03)
[2023-06-16] MEDS: Cholecalciferol (Vitamin D3) 25 MCG TABLET 50 MCG PO (08:03)
[2023-06-16] MEDS: Multivitamin TABLET 1 TAB PO (08:03)
[2023-06-16] MEDS: 0.9 % Sodium Chloride Flush 3 ML SYRINGE IVFLUSH ×2 (08:04→21:20)
[2023-06-16] MEDS: oxyCODONE HCl Immed Release 5 MG TABLET PO ×2 (09:36→16:52)
[2023-06-16] MEDS: cefoTEtan disodium 2 GM in 0.9 % Sodium Chloride 50 ML IV ×2 (10:37→23:19)
--- NOTE | 2023-06-16 10:55 | HO.POSTANES ---
Post Anesthesia Evaluation Post Anesthesia Evaluation Date of Service: 06/15/23 Vital Signs: Vital Signs Temp Pulse Resp BP Pulse Ox O2 Del Method 06/16/23 07:28 98.3 F 67 16 133/83 98 Room Air 06/16/23 04:00 97.5 F 76 18 125/69 98 Room Air Mental Status: Awake Pain Control: Satisfactory Nausea/Vomiting: None (transient Nausea in PACU, resolved) Hydration: Adequate Anesthesia-Related Issues: No Anes. Related Issues
[2023-06-16] MEDS: ondansetron HCL 4 MG/2 ML VIAL IVPUSH (11:33)
[2023-06-16 15:33] VITALS: BP 130/82; PULSE 75; RESP 17; TEMP 36.3; O2SAT 97
[2023-06-16 20:00] VITALS: BP 130/79; PULSE 69; RESP 17; TEMP 36.8; O2SAT 99
[2023-06-16] MEDS: Docusate Sodium 100 MG CAPSULE PO (21:19)
[2023-06-16] MEDS: hydrOXYzine HCL 50 MG TABLET 100 MG PO (21:19)
[2023-06-16 23:29] VITALS: BP 127/68; PULSE 72; RESP 18; TEMP 36.8; O2SAT 98
[2023-06-17] MEDS: Doxycycline Monohydrate 100 MG CAPSULE PO ×2 (00:14→12:14)
[2023-06-17 05:43] LABS: MANUAL DIFF FLAG NO
[2023-06-17 05:50] LABS: Basophils Percent Auto 0.2 % (0-2); Eosinophils Absolute Auto 0.2 X10*3/uL (0.0-0.4); Eosinophils Percent Auto 1.8 % (0-4); Hematocrit 28.2 % (37.0-47.0); Hemoglobin 9.2 g/dl (12.0-16.0); Imm Gran Abs Auto 0.04 X10*3/uL (0.00-0.03); Imm Gran Pct Auto 0.5 % (0.0-0.4); Lymphocytes Absolute Auto 1.6 X10*3/uL (1.2-4.9); Lymphocytes Percent Auto 18.7 % (20-40); Mean Corpuscular HGB Conc 32.6 g/dl (31.0-35.0); Mean Platelet Volume 9.5 fL (9.4-12.3); Monocytes Absolute Auto 0.5 X10*3/uL (0.1-1.2); Monocytes Percent Auto 5.7 % (2-11); Neutrophils Absolute Auto 6.4 x10*3/uL (2.0-8.3); Neutrophils Percent Auto 73.1 % (45-73); Platelet Count 265 X10*3/uL (160-400); Red Blood Count 3.17 X10*6/uL (4.20-5.50); Red Cell Distribution Width 12.3 % (11.0-16.0); White Blood Count 8.8 X10*3/uL (4.8-10.8)
[2023-06-17] MEDS: Acetaminophen 1,000 MG/100 ML PIGGYBACK 400 MG IV (06:18)
[2023-06-17 07:14] VITALS: BP 141/72; PULSE 70; RESP 16; TEMP 36.3; O2SAT 98
--- NOTE | 2023-06-17 08:07 | P.CONOB_ITS ---
BR[employer]TER - CN: HPI Data of Consult Consult date: 06/17/23 Requesting Physician: Dave Wood MD Primary Care Provider: Nemo Bedolla PA-C Consult Narrative Narrative: Coming off call as of this a.m. I was consulted Jill Leiva who is a 32 year old female presented emergency room with right lower quadrant pain, was diagnosed appendicitis during laparoscopic appendectomy a right TOA was diagnosed. Chlamydia was positive, the patient was started on cefotetan 2 g q.12 with doxycycline 100 mg p.o. b.i.d on 06/15. Since then patient has been afebrile , doing better no nausea or vomiting abdominal/pelvic pain has improved with no other complaints cc:: CC: Dave Wood MD [facility] Past Medical History Medical History Painful menstrual periods Functional capacity: independent ambulation Social History Social History Household Members: Family and Children Housing: House Do you presently have visiting nurse or other home services: No Patient Tobacco Use Status: Never used Tobacco Substance Use Type: IV Drugs service: No Meds Allergies Allergy/AdvReac Type Severity Reaction Status Date / Time No Known Allergies Allergy Verified 06/14/23 08:43 Active Medications: Current Medications Docusate Sodium (Docusate Sodium 100 Mg Capsule) 100 mg PO BEDTIME PRN PRN Reason: Constipation Last Admin: 06/16/23 21:19 Dose: 100 mg Doxycycline Monohydrate (Doxycycline Monohydrate 100 Mg Capsule) 100 mg PO Q12H [facility] Last Admin: 06/17/23 00:14 Dose: 100 mg Hydromorphone HCl (Hydromorphone Hcl 0.5 Mg/0.5 Ml Syringe) 0.5 mg IVPUSH Q3H PRN; Protocol PRN Reason: Pain, Severe (Pain Scale 7-10) Last Admin: 06/16/23 21:19 Dose: 0.5 mg Hydroxyzine HCl (Hydroxyzine Hcl 50 Mg Tablet) 100 mg PO BEDTIME [facility] Last Admin: 06/16/23 21:19 Dose: 100 mg Acetaminophen (Ofirmev) 1,000 mg in 100 mls @ 400 mls/hr IV Q6H [facility] Last Infusion: 11/06/23 06:35 Dose: Infused Cefotetan Disodium 2 gm/ (Sodium Chloride) 50 mls @ 100 mls/hr IV Q12H [facility] Last Infusion: 06/16/23 23:50 Dose: Infused Multivitamins/Vitamin C (Multivitamin Tablet) 1 tab PO DAILY [facility] Last Admin: 06/16/23 08:03 Dose: 1 tab Ondansetron HCl (Ondansetron Hcl 4 Mg/2 Ml Vial) 4 mg IVPUSH QID PRN PRN Reason: Nausea Last Admin: 06/16/23 11:33 Dose: 4 mg Oxycodone HCl (Oxycodone Hcl Immed Release 5 Mg Tablet) 5 mg PO Q6H PRN PRN Reason: Pain, Moderate(Pain Scale 4-6) Last Admin: 06/16/23 16:52 Dose: 5 mg Sodium Chloride (0.9 % Sodium Chloride Flush 3 Ml Syringe) 3 ml IVFLUSH QSHIFT [facility] Last Admin: 06/16/23 21:20 Dose: 3 ml Venlafaxine HCl (Venlafaxine Hcl Er 150 Mg Cap.Er.24h) 150 mg PO DAILY [facility] Last Admin: 06/16/23 08:03 Dose: 150 mg Vitamin D (Cholecalciferol (Vitamin D3) 25 Mcg Tablet) 50 mcg PO DAILY [facility] Last Admin: 06/16/23 08:03 Dose: 50 mcg Zolpidem Tartrate (Zolpidem Tartrate 5 Mg Tablet) 5 mg PO BEDTIME PRN PRN Reason: Insomnia Home Medications Medication Instructions Recorded Confirmed Last Taken Type cholecalciferol (vitamin D3) 50 50 mcg PO DAILY 06/14/23 06/14/23 06/13/23 History mcg (2,000 unit) capsule hydroxyzine HCl 50 mg tablet 100 mg PO BEDTIME 06/14/23 06/14/23 06/13/23 History vitamin with calcium 1 tab PO DAILY 06/14/23 06/14/23 06/13/23 History no.72-iron 27 mg-folic acid 1 mg tablet (M- Plus) venlafaxine 150 mg 150 mg PO DAILY 06/14/23 06/14/23 06/13/23 History capsule,extended release 24 hr [employer] Physical Exam Vitals Vital signs: Temp Pulse Resp BP Pulse Ox O2 Del Method O2 Flow Rate 97.4 F 70 16 141/72 H 98 Room Air 2 06/17/23 07:14 06/17/23 07:14 06/17/23 07:14 06/17/23 07:14 06/17/23 07:14 06/17/23 07:14 06/15/23 11:30 BMI result Body Mass Index 25.2 Lungs Auscultation: Clear to auscultation Cardiovascular Auscultation: RRR Abdomen Auscultation/Inspection/Palpation: Normal bowel sounds, Soft and Tenderness (Bilateral right and left lower quadrant tenderness) Female Genitalia (Pelvic) Vulva: No lesions Vagina: Nontender Cervix: Grossly normal and Cervical motion tenderness Uterus: Normal size and Tender Adnexa/Parametria: Adnexal Tenderness: Bilateral [employer] - Results Labs 06/17/23 05:35 06/14/23 08:57 Labs: Short CBC 06/17/23 Range/Units 05:35 WBC 8.8 (4.8-10.8) X10*3/uL Hgb 9.2 L (12.0-16.0) g/dl Hct 28.2 L (37.0-47.0) % Plt Count 265 (160-400) X10*3/uL Urine 06/14/23 Range/Units 09:08 Urine Color Dark Yellow Urine Appearance Clear Urine pH 6.0 (5.0-9.0) Ur Specific [place] >= 1.030 H (1.005-1.025) Urine Protein 30 (1+) H (Neg-Trace) mg/dL Urine Glucose (UA) Negative (Negative) mg/dL Assessment and Plan (1) Tubo-ovarian abscess: Status: Acute GC/ chlamydia taken, chlamydia positive, BV panel and Trichomonas taken. STD screen ordered including HIV, hepatitis-B surface antigen, Hepatitis-C antibody and RPR. Recommend continue IV antibiotics with cefotetan 2 g g q.12, doxycycline 100 mg p.o. or IV q.12 till clinical improvement for 48-72 hours since initiation of antibiotic (06/15 at noon), then discharge home on doxycycline 100 mg p.o. b.i.d. with Flagyl 500 mg p.o. b.i.d. for a total of 14 days, to be followed up as an outpatient within 2 weeks. In the event the patient does not progress or develop any of the following: Suspected sepsis , enlarging pelvic mass, new onset fever, persistent or worsening abdomino/pelvic tenderness after 48-72 hours of treatment with IV antibiotics, the patient might need minimally invasive abscess drainage through interventional radiology or surgical intervention. Instructions given the patient to inform her partner to be screened and treated for Chlamydia and abstain from unprotected intercourse for 2 weeks. STD screen ordered with BV panel and Trichomonas and the patient will be treated accordingly if any of those tests are positive P This note was generated with a voice recognition program. Some errors may have been overlooked during the review of this note. Sometimes these errors may affect the content or meaning of a given sentence.
[2023-06-17] MEDS: Multivitamin TABLET 1 TAB PO (09:04)
[2023-06-17] MEDS: 0.9 % Sodium Chloride Flush 3 ML SYRINGE IVFLUSH ×2 (09:04→21:46)
[2023-06-17] MEDS: Venlafaxine HCl ER 150 MG CAP.ER.24H PO (09:04)
[2023-06-17] MEDS: Cholecalciferol (Vitamin D3) 25 MCG TABLET 50 MCG PO (09:04)
[2023-06-17 09:52] LABS: BV Int Neg Control Negative (Negative); BV Int Pos Control Positive (Positive)
[2023-06-17 10:14] LABS: HIV AB/AG Nonreactive (Nonreactive); HIV Num 1 0.06 S/CO (0.00-0.99); Hepatitis B Surface Antigen Negative (Negative); Syphilis Screen Nonreactive (Nonreactive); ~HepC Num1 0.16 S/CO (0.00-0.79); ~Hepatitis C Antibody Nonreactive (Nonreactive)
--- NOTE | 2023-06-17 10:23 | PM.PNGS ---
Subjective Subjective Date of Service: 06/17/23 Interval history: Feeling better this morning. Tolerating solid diet. OOB and ambulating in room. Had BM. Physical Exam Vital Signs: Vital Signs: Last Vital Signs Temp 97.4 F 06/17/23 07:14 Pulse 70 06/17/23 07:14 Resp 16 06/17/23 07:14 BP 141/72 H 06/17/23 07:14 Pulse Ox 98 06/17/23 07:14 O2 Del Method Room Air 06/17/23 07:14 O2 Flow Rate 2 06/15/23 11:30 BMI result Body Mass Index 25.2 Const: General: comfortable, no acute distress and alert Orientation/consciousness: patient oriented x3 Resp: Effort & Inspection: normal respiratory effort GI: Inspection: No distended and Yes incision (clean) Palpation (GI): Soft to palpation, Tenderness to palpation present (GI) (incisional), no guarding and not rigid Skin: General skin exam: no rashes or lesions noted Neuro: General: patient oriented x3 and moves all extremities Objective Data Active Medications Docusate Sodium (Docusate Sodium 100 Mg Capsule) 100 mg PO BEDTIME PRN PRN Reason: Constipation Last Admin: 06/16/23 21:19 Dose: 100 mg Documented By: MARGAUX Doxycycline Monohydrate (Doxycycline Monohydrate 100 Mg Capsule) 100 mg PO Q12H [facility] Last Admin: 06/17/23 00:14 Dose: 100 mg Documented By: MARGAUX Hydromorphone HCl (Hydromorphone Hcl 0.5 Mg/0.5 Ml Syringe) 0.5 mg IVPUSH Q3H PRN; Protocol PRN Reason: Pain, Severe (Pain Scale 7-10) Last Admin: 06/16/23 21:19 Dose: 0.5 mg Documented By: MARGAUX Hydroxyzine HCl (Hydroxyzine Hcl 50 Mg Tablet) 100 mg PO BEDTIME [facility] Last Admin: 06/16/23 21:19 Dose: 100 mg Documented By: MARGAUX Acetaminophen (Ofirmev) 1,000 mg in 100 mls @ 400 mls/hr IV Q6H [facility] Last Infusion: 06/17/23 06:35 Dose: Infused Documented By: MARGAUX Cefotetan Disodium 2 gm/ (Sodium Chloride) 50 mls @ 100 mls/hr IV Q12H [facility] Last Infusion: 06/16/23 23:50 Dose: Infused Documented By: MARGAUX Multivitamins/Vitamin C (Multivitamin Tablet) 1 tab PO DAILY [facility] Last Admin: 06/17/23 09:04 Dose: 1 tab Documented By: RAFIQ Ondansetron HCl (Ondansetron Hcl 4 Mg/2 Ml Vial) 4 mg IVPUSH QID PRN PRN Reason: Nausea Last Admin: 06/16/23 11:33 Dose: 4 mg Documented By: DEXTER Oxycodone HCl (Oxycodone Hcl Immed Release 5 Mg Tablet) 5 mg PO Q6H PRN PRN Reason: Pain, Moderate(Pain Scale 4-6) Last Admin: 06/16/23 16:52 Dose: 5 mg Documented By: DEXTER Sodium Chloride (0.9 % Sodium Chloride Flush 3 Ml Syringe) 3 ml IVFLUSH QSHIFT [facility] Last Admin: 06/17/23 09:04 Dose: 3 ml Documented By: RAFIQ Venlafaxine HCl (Venlafaxine Hcl Er 150 Mg Cap.Er.24h) 150 mg PO DAILY [facility] Last Admin: 06/17/23 09:04 Dose: 150 mg Documented By: RAFIQ Vitamin D (Cholecalciferol (Vitamin D3) 25 Mcg Tablet) 50 mcg PO DAILY [facility] Last Admin: 06/17/23 09:04 Dose: 50 mcg Documented By: RAFIQ Zolpidem Tartrate (Zolpidem Tartrate 5 Mg Tablet) 5 mg PO BEDTIME PRN PRN Reason: Insomnia Labs 06/17/23 05:35 06/14/23 08:57 Labs: Laboratory Results - last 24 hr 06/17/23 06/17/23 06/17/23 05:35 08:10 09:10 MCV 89.0 MCH 29.0 MCHC 32.6 RDW 12.3 Plt Count 265 MPV 9.5 Immature Gran % (Auto) 0.5 H Neut % (Auto) 73.1 H Lymph % (Auto) 18.7 L [place] % (Auto) 5.7 Eos % (Auto) 1.8 Baso % (Auto) 0.2 Lymph # (Auto) 1.6 [place] # (Auto) 0.5 Eos # (Auto) 0.2 Baso # (Auto) 0.0 Abs Immat Gran (auto) 0.04 H Absolute Neuts (auto) 6.4 Absolute Nucleated RBC 0.000 Nucleated RBC % (auto) 0.0 T.pallidum Ab (EIA) Nonreactive Shelia species DNA Negative Gardnerella DNA Probe Negative Trichomonas DNA Probe Negative Microbiology Microbiology Results: Microbiology 06/15/23 Unknown Gram Stain - Final Ovary Left Routine Culture - Preliminary No growth after 2 days 06/14/23 10:50 Blood Culture - Preliminary Blood - Venous No growth after 48 hours. 06/14/23 10:50 Blood Culture - Preliminary Blood - Venous No growth after 48 hours. Procedures Date of Service Date of Service: 06/17/23 Progress Note: A&P Assessment and plan (1) Tubo-ovarian abscess: Status: Acute (2) Chlamydial pelvic inflammatory disease: Status: Acute Plan 32-year-old female patient presenting with lower abdominal pain with CT findings suggestive of early appendicitis. Patient had persistent elevated WBC and increased abdominal pain after 12 hours of observation. Patient subsequently underwent diagnostic laparoscopy with laparoscopic appendectomy. On exploration she was found to have a pelvic abscess collection which was cultured, drained, and washed out. ABd benign, incisions clean. WBC has normalized. Seen by obgyn this am- STD screen ordered with BV panel and Trichomonas. Recommend continue IV antibiotics with cefotetan 2 g g q.12, doxycycline 100 mg p.o. or IV q.12 for 48-72 hours with discharge to home on doxycycline 100 mg p.o. b.i.d. with Flagyl 500 mg p.o. b.i.d. for a total of 14 days, and outpatient follow up in weeks. Will keep one more night for IV abx and dc to home tomorrow. Patient comfortable with plan. Time Spent With Patient Time: Total time managing care of this patient today ____ minutes. Quality Stroke Does the patient have a stroke diagnosis?: No VTE Prior VTE?: No VTE Risk Level:: Surgical - low VTE Device Contraindication: N/A - Device Ordered VTE Drug Contraindication: Treatment Not Indicated
[2023-06-17] MEDS: cefoTEtan disodium 2 GM in 0.9 % Sodium Chloride 50 ML IV (11:10)
[2023-06-17] MEDS: oxyCODONE HCl Immed Release 5 MG TABLET PO ×2 (13:12→21:47)
[2023-06-17] MEDS: ondansetron HCL 4 MG/2 ML VIAL IVPUSH (13:16)
[2023-06-17 16:21] VITALS: BP 138/83; PULSE 68; RESP 18; TEMP 36.4; O2SAT 99
[2023-06-17 19:08] VITALS: BP 129/74; PULSE 74; RESP 18; TEMP 36.4; O2SAT 99
[2023-06-17] MEDS: hydrOXYzine HCL 50 MG TABLET 100 MG PO (21:48)
[2023-06-17] MEDS: Docusate Sodium 100 MG CAPSULE PO (21:48)
[2023-06-18] MEDS: Doxycycline Monohydrate 100 MG CAPSULE PO (00:38)
[2023-06-18] MEDS: cefoTEtan disodium 2 GM in 0.9 % Sodium Chloride 50 ML IV (00:38)
[2023-06-18 03:28] VITALS: BP 117/64; PULSE 76; RESP 18; TEMP 36.4; O2SAT 98
[2023-06-18 07:17] VITALS: BP 132/76; PULSE 72; RESP 18; TEMP 37.2; O2SAT 97
--- NOTE | 2023-06-18 07:45 | PM.PNGS ---
Subjective Subjective Date of Service: 06/18/23 Interval history: Patient feels improved with decreased abdominal pain. Tolerating regular diet without nausea or vomiting. Physical Exam Vital Signs: Vital Signs: Last Vital Signs Temp 99 F 06/18/23 07:17 Pulse 72 06/18/23 07:17 Resp 18 06/18/23 07:17 BP 132/76 06/18/23 07:17 Pulse Ox 97 06/18/23 07:17 O2 Del Method Room Air 06/18/23 07:17 O2 Flow Rate 2 06/15/23 11:30 BMI result Body Mass Index 25.2 Const: General: comfortable and no acute distress Nutritional Appearance: well nourished Orientation/consciousness: patient oriented x3 Limitations: no limitations Resp: Effort & Inspection: normal respiratory effort GI: Other: Trocar incisions are clean, dry, and intact. Inspection: Yes normal to inspection Palpation (GI): Soft to palpation, nontender and no guarding Neuro: General: patient oriented x3 Extrem: General: No edema Objective Data Active Medications Docusate Sodium (Docusate Sodium 100 Mg Capsule) 100 mg PO BEDTIME PRN PRN Reason: Constipation Last Admin: 06/17/23 21:48 Dose: 100 mg Documented By: MARGAUX Doxycycline Monohydrate (Doxycycline Monohydrate 100 Mg Capsule) 100 mg PO Q12H [facility] Last Admin: 06/18/23 00:38 Dose: 100 mg Documented By: MARGAUX Hydromorphone HCl (Hydromorphone Hcl 0.5 Mg/0.5 Ml Syringe) 0.5 mg IVPUSH Q3H PRN; Protocol PRN Reason: Pain, Severe (Pain Scale 7-10) Last Admin: 06/16/23 21:19 Dose: 0.5 mg Documented By: MARGAUX Hydroxyzine HCl (Hydroxyzine Hcl 50 Mg Tablet) 100 mg PO BEDTIME [facility] Last Admin: 06/17/23 21:48 Dose: 100 mg Documented By: MARGAUX Cefotetan Disodium 2 gm/ (Sodium Chloride) 50 mls @ 100 mls/hr IV Q12H [facility] Last Infusion: 06/18/23 01:14 Dose: Infused Documented By: MARGAUX Multivitamins/Vitamin C (Multivitamin Tablet) 1 tab PO DAILY [facility] Last Admin: 06/17/23 09:04 Dose: 1 tab Documented By: RAFIQ Ondansetron HCl (Ondansetron Hcl 4 Mg/2 Ml Vial) 4 mg IVPUSH QID PRN PRN Reason: Nausea Last Admin: 06/17/23 13:16 Dose: 4 mg Documented By: RAFIQ Oxycodone HCl (Oxycodone Hcl Immed Release 5 Mg Tablet) 5 mg PO Q6H PRN PRN Reason: Pain, Moderate(Pain Scale 4-6) Last Admin: 06/17/23 21:47 Dose: 5 mg Documented By: MARGAUX Sodium Chloride (0.9 % Sodium Chloride Flush 3 Ml Syringe) 3 ml IVFLUSH [facility] Last Admin: 06/17/23 21:46 Dose: 3 ml Documented By: MARGAUX Venlafaxine HCl (Venlafaxine Hcl Er 150 Mg Cap.Er.24h) 150 mg PO DAILY [facility] Last Admin: 06/17/23 09:04 Dose: 150 mg Documented By: RAFIQ Vitamin D (Cholecalciferol (Vitamin D3) 25 Mcg Tablet) 50 mcg PO DAILY [facility] Last Admin: 06/17/23 09:04 Dose: 50 mcg Documented By: RAFIQ Zolpidem Tartrate (Zolpidem Tartrate 5 Mg Tablet) 5 mg PO BEDTIME PRN PRN Reason: Insomnia Labs 06/17/23 05:35 06/14/23 08:57 Labs: Laboratory Results - last 24 hr 06/17/23 06/17/23 08:10 09:10 T.pallidum Ab (EIA) Nonreactive Shelia species DNA Negative Gardnerella DNA Probe Negative Hep Bs Antigen Negative Hepatitis C Ab (EIA) Nonreactive HIV 1&2 Ab/P24 Ag 4thGn Nonreactive Trichomonas DNA Probe Negative Microbiology Microbiology Results: Microbiology 06/15/23 Unknown Gram Stain - Final Ovary Left Routine Culture - Preliminary No growth after 2 days Procedures Date of Service Date of Service: 06/18/23 Progress Note: A&P Assessment and plan (1) Tubo-ovarian abscess: Status: Acute (2) Chlamydial pelvic inflammatory disease: Status: Acute (3) Biliary colic: Status: Acute (4) Acute appendicitis: Status: Acute Plan Pod 3 following laparoscopic appendectomy, drainage of abscess in pelvis found to have TOA due to PID. Patient much improved with decreased abdominal pain. Wounds clean, dry, and intact. Patient feels ready for discharge. Will discharge to home with follow-up in 1 week. Patient will follow-up with Dr. Tobar in 2 weeks. Will continue antibiotics for the next 2 weeks. Patient is instructed to return for increased abdominal pain, fever, chills, or other abdominal symptoms. She expressed understanding and agrees with the plan. Time Spent With Patient Time: Total time managing care of this patient today ____ minutes. Quality Stroke Does the patient have a stroke diagnosis?: No VTE Prior VTE?: No VTE Risk Level:: Surgical - low VTE Device Contraindication: N/A - Device Ordered VTE Drug Contraindication: Treatment Not Indicated
[2023-06-18] MEDS: Multivitamin TABLET 1 TAB PO (07:50)
[2023-06-18] MEDS: oxyCODONE HCl Immed Release 5 MG TABLET PO (07:51)
[2023-06-18] MEDS: Venlafaxine HCl ER 150 MG CAP.ER.24H PO (07:53)
[2023-06-18] MEDS: Cholecalciferol (Vitamin D3) 25 MCG TABLET 50 MCG PO (07:53)
[2023-06-18] MEDS: 0.9 % Sodium Chloride Flush 3 ML SYRINGE IVFLUSH (07:55)
--- NOTE | 2023-06-18 08:30 | MHC.CM.PN ---
PT MEDICALLY CLEARED FOR DC HOME SELF CARE, PT TO ARRANGE TRANSPORT.
--- NOTE | 2023-06-18 14:11 | PM.DS ---
DS: Providers Provider Date of Service: 06/18/23 Date of admission: 06/14/23 11:38 Primary care physician: Nemo Bedolla PA-C Attending physician on admission: Dave Wood Consults: 06/15/23 12:03 Consult to Obstetrics / Gynecology Routine Consulting Provider: Fransico Tobar Reason for consultation: Pelvic abscess, Chlamydia trachomatis Attending physician on discharge: Dave Wood DS: Diagnosis Discharge Diagnosis (1) Tubo-ovarian abscess: Status: Acute (2) Chlamydial pelvic inflammatory disease: Status: Acute (3) Biliary colic: Status: Acute (4) Acute appendicitis: Status: Acute DS: Summary Hospital Course Hospital Course: HPI AT ADMISSION: Jill Leiva is a 32 year old female presenting with complaints of abdominal pain in the right upper quadrant and right lower quadrant. She reports having pain in the right upper quadrant intermittently for several years but feels this is now increased in severity and is now so she would with nausea and vomiting. She reports drinking large amounts of Coca[employer] and feels this may have contributed to her abdominal symptoms. She reports nausea and vomiting with decreased appetite. She also reports increased pain with fatty food intake. Over the past 24 hours he also developed lower abdominal pain initially felt she was and cramps associated with her menstrual cycle. When this did not improve she presented to the emergency department. Workup in the ED revealed elevated WBC of 16 K. examination did revealed tenderness in the upper abdomen and lower. CT abdomen and pelvis revealed a mildly dilated appendix with some inflammatory changes surrounding it suggestive of early appendicitis. A large gallstone was noted in the gallbladder with no secondary evidence of acute cholecystitis. HOSPITAL COURSE: The patient was admitted to surgical service for management upper abdominal pain. Workup revealed evidence of both biliary colic and possibly early appendicitis. Treatment options were discussed and she was started on IV antibiotics and observation. Her abdominal pain increased in the lower quadrants and her WBC count remained elevated, more suggestive of acute appendicitis then biliary colic. It was therefore recommended to proceed with laparoscopic or possible open appendectomy and she was added onto the OR schedule for that day. On 06/15/23, a laparoscopic appendectomy, drainage of abscess left pelvis was performed by Dr. Wood without complication. She was found to have a normal appearing appendix, normal appearing gallbladder, but an abscess associated with tubes and ovary. She tolerated the procedure well. She had an uncomplicated recovery course. Her IV antibiotics were continued post operatively given the findings and obgyn consulted. STD screening ordered and she was positive for chlamydia. Digital Printer Operator recommended continuing IV antibiotics with cefotetan 2g q.12, doxycycline 100 mg IV q.12 for 48-72 hours since initiation. Partner screening and abstinence for 2 weeks was discussed. Her WBC count downtrended and normalized. She remained inpatient and received IV abx for a total of 4 days. On the day of discharge, she was tolerating a solid diet without nausea or vomiting. Her pain was well controlled. She was ambulating without difficulty. Her abdomen was benign with clean incisions. She was discharged to home on 06/18/23 in stable condition. She was discharged on doxycycline 100 mg PO BID and Flagyl 500 mg PO BID for 14 days. She is to follow up in the office in [address] Wood and [address] Tobar. Status at Discharge Functional status at discharge: independent ambulation Overall status at discharge: patient is progressing back to baseline Time Attestation Discharge coordination time: Less than 30 minutes Quality: Safe Use of Opioids Does Pt have an Active Cancer Diagnosis on the Problem List?: No Quality: Stroke Does the patient have a stroke diagnosis?: No Physical Exam Vital Signs: Vital Signs: Last Vital Signs Temp 99 F 06/18/23 07:17 Pulse 72 06/18/23 07:17 Resp 18 06/18/23 07:17 BP 132/76 06/18/23 07:17 Pulse Ox 97 06/18/23 07:17 O2 Del Method Room Air 06/18/23 07:17 O2 Flow Rate 2 06/15/23 11:30 BMI result Body Mass Index 25.2 Const: General: comfortable, no acute distress and alert Orientation/consciousness: patient oriented x3 GI: Inspection: No distended and Yes incision (clean) Palpation (GI): Soft to palpation and Tenderness to palpation present (GI) (mild incisional) Skin: General skin exam: no rashes or lesions noted Neuro: General: patient oriented x3 DS: Data Data Completed and Pending Pending studies at discharge: Pending at discharge 06/15/23 10:43 Surgical [PTH] Routine Labs on day of discharge: Preliminary micro results at discharge 06/14/23 10:50 Blood Culture - Preliminary Blood - Venous No growth after 48 hours. 06/14/23 10:50 Blood Culture - Preliminary Blood - Venous No growth after 48 hours. Discharge Plan Discharge Anticipated Discharge Date/Time: 06/18/23 08:05 Patient Disposition: Home, Self-Care Referrals: Dave Wood MD [Physician] - 1 Week Nemo Bedolla PA-C [Primary Care Provider] - 1 Week Fransico Tobar MD [Physician] - 2 Weeks Discharge Medications: New doxycycline monohydrate 100 mg tablet 100 mg PO BID Qty: 28 0RF metronidazole 500 mg tablet 500 mg PO BID Qty: 28 0RF docusate sodium [Colace] 100 mg capsule 100 mg PO BID PRN (Reason: constipation) Qty: 30 0RF oxycodone 5 mg tablet 5 mg PO Q4H PRN (Reason: pain (scale score 7-10)) Qty: 20 0RF Rx Instructions: Partial Fill upon patient request. Continued venlafaxine 150 mg capsule,extended release 24hr 150 mg PO DAILY hydroxyzine HCl 50 mg tablet 100 mg PO BEDTIME cholecalciferol (vitamin D3) 50 mcg (2,000 unit) capsule 50 mcg PO DAILY M-Samra Plus 27 mg iron- 1 mg tablet 1 tab PO DAILY Discharge Orders: Discharge Order (Routine); Ordered 06/18/23 Ordered By: Dave Wood Diet: Advance to usual diet Activity on Discharge: No heavy lifting Stand Alone Forms: Patient Portal Discharge page Activity Restrictions/Additional Instructions: If the incision area is tender, you may apply an ice pack for short intervals (No more than 20 minutes on, followed by at least 20 minutes off). Do not apply heat. Do not use creams, lotions, or topical antibiotics. These can cause infection or allergic reaction. Ok to shower. You have steri strips (small white cloth strips) covering your incision- these will fall off ~1 week. No heavy lifting (>10lbs) or strenuous activity! Follow up in office with Dr. Wood in 1 week. ([phone]) Call Your Doctor If: -Your temperature exceeds 101.5? F -You experience excessive pain or swelling -You have an unexpected reaction to medication -You have excessive bleeding -You experience continued vomiting/nausea -Your incision begins to separate -Your incision shows signs of infection such as increased redness, swelling, excessive pain, drainage (light blood or clear fluid is normal) or heat Care Plan Goals: Return to baseline health and resume normal activities following recovery period. Health Concerns: tubo-ovarian abscess PID Plan of Treatment: IV transitioned to PO abx Safe intercourse, treatment of partner F/u with Dr. Wood in 1 week F/u with Dr. Tobar in 2 weeks Assessment: Improved, stable Discharge Date/Time: 06/18/23 10:20
== END 2023-06-18 10:20 | disposition home or self-care (01) ==
LOC: HO.ED 10:25 → HO.EDOVER 12:02 → HO.S3 12:33
PROVIDERS: Obstetrics & Gynecology; Admitting Provider Surgery; Emergency Provider Emergency Medicine; PCP Physician Assistant Medical; Visit Provider Surgery
PROC: 0DTJ4ZZ Resection of Appendix, Percutaneous Endoscopic Approach (ICD-10-PCS; CPT 44970; principal; 2023-06-15 09:00)
DX: K35.30 Acute appendicitis with localized peritonitis, without perforation or gangrene (principal); N70.03 Acute salpingitis and oophoritis; K80.50 Calculus of bile duct without cholangitis or cholecystitis without obstruction; A56.11 Chlamydial female pelvic inflammatory disease; R10.11 Right upper quadrant pain; R10.31 Right lower quadrant pain; Z72.89 Other problems related to lifestyle
CPT/HCPCS: 44970; 0353U; 36415; 74177; 80048; 80076; 81001; 83605; 83690; 83735; 84702; 85025; 85027; 86780; 86803; 87040; 87070; 87086; 87205; 87340; 87389; 87480; 87510; 87660; 88304; 96361; 96365; 96366; 96367; 96375; 96376; 99221; 99285; J0131; J1100; J1170; J1885; J2250; J2270; J2405; J2543; J2795; J3010; Q9967

== ENCOUNTER → 2023-06-14 11:38 | Outpatient (BNV) | payer MEDICAID, SELFPAY | PROVIDERS: Admitting Provider Surgery; Emergency Provider Emergency Medicine; PCP Physician Assistant Medical; Visit Provider Surgery | DX: N70.93 Salpingitis and oophoritis, unspecified (principal); A56.11 Chlamydial female pelvic inflammatory disease; K80.50 Calculus of bile duct without cholangitis or cholecystitis without obstruction; K35.30 Acute appendicitis with localized peritonitis, without perforation or gangrene | CPT/HCPCS: 44970; 49322; 99024; 99222; 99232 ==

== ENCOUNTER → 2023-06-14 11:38 | Outpatient (BNV) | payer MEDICAID, SELFPAY | PROVIDERS: Admitting Provider Surgery; Emergency Provider Emergency Medicine; PCP Physician Assistant Medical; Visit Provider Obstetrics & Gynecology | DX: N70.93 Salpingitis and oophoritis, unspecified (principal) | CPT/HCPCS: 99232 ==

== ENCOUNTER 2023-07-03 09:41 | Outpatient (AMB) | payer MEDICAID, SELFPAY ==
[2023-07-03 09:56] VITALS: BP 120/57; PULSE 70; BMI 26.2
--- NOTE | 2023-07-03 09:56 | MHC.OFFVIS ---
Intake Vital Signs 07/03/23 09:56 Height 5 ft 3 in Weight 148 lb 2 oz BMI 26.2 BP 120/57 L Blood Pressure Location Lt brachial Position Sitting Pulse 70 Intake Visit Reasons: s/p lap appy, drainage of abscess left pelvis Intake Note: Patient is seen in office for post op assessment post laparoscopic appendectomy. Patient c/o: admits to pain, night sweats and chills, denies nausea, vomit, diarrhea constipation Electronic Device Repairer Required: No Accompanied by: Self / Same As Patient Allergies No Known Allergies Allergy (Verified 07/03/23 09:58) HPI HPI Comments History of Present Illness Details 32-year-old female patient returning following her recent admission for appendicitis/PID status post laparoscopic exploration with appendectomy and drainage of pelvic abscess. Since her discharge she denies any abdominal pain, nausea or vomiting. She does report a fever and chills over the weekend but nothing for the past several days. She is eating well and reports normal bowel movements. She is due to see Dr. Tobar later today. She denies any current fever or chills. She does report having intercourse with her boyfriend over the weekend and held her antibiotics for a day. He was treated in the emergency department, receiving IM followed by oral antibiotics. [facility] Medical History Painful menstrual periods Surgical History History of laparoscopic appendectomy (06/15/23) Household Members: Family and Children Housing: House Do you presently have visiting nurse or other home services: No Patient Tobacco Use Status: Never used Tobacco Substance Use Type: IV Drugs service: No Physical Exam Vital Signs: Last Vital Signs Pulse 70 07/03/23 09:56 BP 120/57 L 07/03/23 09:56 BMI result Body Mass Index 26.2 Const General: comfortable and no acute distress Nutritional Appearance: well nourished Orientation/consciousness: patient oriented x3 Limitations: no limitations Resp Effort & Inspection: normal respiratory effort, no audible wheezes, no cough and no respiratory distress GI Other: Trocar incisions are clean, dry, and intact without redness or discharge. Inspection: Yes normal to inspection Palpation (GI): Soft to palpation, nontender, no guarding and not rigid Neuro General: patient oriented x3 Extrem General: Yes no clubbing, cyanosis or edema Assessment & Plan Assessment & Plan (1) Tubo-ovarian abscess: Code(s): N70.93 - Salpingitis and oophoritis, unspecified (2) Chlamydial pelvic inflammatory disease: Code(s): A56.11 - Chlamydial female pelvic inflammatory disease Plan Overall the patient is much improved with no further abdominal pain fever or chills. She is due to follow up with Dr. Tobar later today. Her wounds were found to be clean, dry, and intact. She should follow up with us as needed. Coding Level of Care Code Global (80969) Diagnoses Tubo-ovarian abscess N70.93 Chlamydial pelvic inflammatory disease A56.11
== END 2023-07-03 10:00 | disposition home or self-care (01) ==
PROVIDERS: PCP Physician Assistant Medical; Visit Provider Surgery
DX: N70.93 Salpingitis and oophoritis, unspecified (principal); A56.11 Chlamydial female pelvic inflammatory disease
CPT/HCPCS: 99024

== ENCOUNTER 2023-07-03 09:41 | Outpatient (REF) | payer MEDICAID, SELFPAY ==
[2023-07-03 18:36] LABS: CT PCR NOT DETECTED (Not Detect.); NG PCR NOT DETECTED (Not Detect.)
[2023-07-04 12:01] LABS: BV Int Neg Control Negative (Negative); BV Int Pos Control Positive (Positive)
== END 2023-07-03 09:42 | disposition home or self-care (01) ==
LOC: HO.LNP 09:41
PROVIDERS: Obstetrics & Gynecology; PCP Physician Assistant Medical; Visit Provider Surgery
DX: A56.11 Chlamydial female pelvic inflammatory disease (principal); N70.93 Salpingitis and oophoritis, unspecified
CPT/HCPCS: 0353U; 87480; 87510; 87660; 99212

== ENCOUNTER 2023-07-03 15:46 | Outpatient (AMB) | payer MEDICAID, SELFPAY ==
--- OUTSIDE RECORDS SUMMARY | 2023-07-03 15:48 | XMS_ITS | Continuity of Care Document ---
Author Name Unknown Organization [facility] ter Address [address] [place] [id number]- Care Team Providers Care Clinic Scheduler Name Role Phone Nemo Crum Primary Care Physician Encounter [facility] Date(s): 12/08/20 - 12/08/[address] [address]- Encounter Diagnosis (Final) - 12/08/20 Discharge Disposition: A-D/C Home Attending Physician: Maral Saunders DO Admitting Physician: Maral Saunders DO Referring Physician: Not on Staff, Referring MD Allergies, Adverse Reactions, Alerts No Known Medication Allergies Medications ibuprofen 600 mg oral tablet 600 mg, 1, tablet, By Mouth, 4 times a day, # 20 tablet, Refills 0, Tot. Refills 0, Maintenance, 08/02/18 18:11:17 EST, Print Requisition Start Date: 08/02/18 Status: Ordered Vital Signs Most recent to oldest [Reference Range]: 1 2 Oxygen Saturation [94-100 %] 98 % (12/08/20 1:49 PM) 100 % (12/08/20 12:26 PM) Pulse Rate [55-90 bpm] 78 bpm (12/08/20 1:49 PM) 92 bpm *H* (12/08/20 12:26 PM) Blood Pressure [90-138/55-84 mm Hg] 124/ 70mm Hg (12/08/20 1:49 PM) Respiratory Rate [16-30 br/min] 18 br/mi n (12/08/20 1:49 PM) Temperature [96.8-100.4 DegF] 98.6 DegF (12/08/20 1:49 PM) Mode of Delivery (Oxygen) Room air (12/08/20 1:49 PM) Room air (12/08/20 12:26 PM) Blood pressure sites Arm, right (12/08/20 1:49 PM) Temperature Route Oral (12/08/20 1:49 PM)
--- NOTE | 2023-07-03 15:51 | A.OFFVIS_ITS ---
Intake Vital Signs 07/03/23 15:54 Height 5 ft 3 in Weight 147 lb 11.355 oz BMI 26.2 BP 110/60 Intake Visit Reasons: JIHAN Application Security Architect Required: No Information Interpreted: non-clinical & clinical Real Estate Closing Coordinator: Real Estate Closing Coordinator Present (Gemma WRIGHT) Accompanied by: Self / Same As Patient Allergies No Known Allergies Allergy (Verified 07/03/23 15:55) Is last menstrual period known: Yes Last menstrual period: 06/15/23 HPI HPI Comments History of Present Illness Details The patient is presenting 2 weeks post tubo-ovarian abscess diagnosed during laparoscopic appendectomy. Chlamydia was positive, gonorrhea and Trichomonas negative. Other STDs including HIV, hepatitis-B surface antigen, hepatitis-C antibody and RPR were negative. The patient was treated with cefotetan 2 g q.12 with doxycycline 100 mg p.o. b.i.d and Flagyl 500 mg p.o. b.i.d. as an inpatient and was discharged home with doxycycline 100 mg p.o. b.i.d. and Flagyl 500 mg p.o. b.i.d. to be taken for a total of 10 days, which was completed as directed. Since then patient has been afebrile , doing well with no residual pelvic pain and no other complaints. The patient did have unprotected intercourse 5 days ago, her partner was informed 2 weeks ago who was checked in the emergency and treated according to pain [facility] Medical History Painful menstrual periods Surgical History History of laparoscopic appendectomy (06/15/23) Household Members: Family and Children Housing: House Do you presently have visiting nurse or other home services: No Patient Tobacco Use Status: Never used Tobacco Substance Use Type: IV Drugs service: No Female Reproductive History Menstrual Date of last menstrual period: 06/15/23 Review of Systems Const All systems reviewed & are unremarkable except as noted in HPI and below Physical Exam General: Yes no CVA tenderness External Female Exam: normal external appearance and normal appearance of the urethra Speculum Exam - Vagina: normal appearance of the vagina, normal palpation, no lesions and no masses Speculum Exam - Cervix: normal appearance of the cervix, normal palpation, no lesions, no masses and nontender Bimanual exam- vagina & uterus: normal bimanual exam, normal palpation, uterine size normal, normal palpation, uterine shape normal, No Cervical tenderness present and non-tender Bimanual Exam- Adnexa, other: normal adnexae Back/Spine/Pelvis Back: no CVA tenderness Assessment & Plan Assessment & Plan (1) Chlamydial pelvic inflammatory disease: Code(s): A56.11 - Chlamydial female pelvic inflammatory disease Plan: GC and chlamydia with BV panel repeated. Will repeat STD screen within 6 months. Will order repeat pelvic ultrasound to assess the resolution of the TOA. Instructions given to patient to call in case of fever above 100.4, recurrence of pelvic pain and to schedule a 3 months JIHAN and schedule a follow-up ultrasound appointment within 2 weeks. All questions answered, the patient verbalized understanding Coding Level of Care Code Est Pt Level 3 (41827) Diagnoses Chlamydial pelvic inflammatory disease A56.11
[2023-07-03 15:54] VITALS: BP 110/60; BMI 26.2
== END 2023-07-03 16:03 | disposition home or self-care (01) ==
LOC: HO.HWS 15:46
PROVIDERS: PCP Physician Assistant Medical; Visit Provider Obstetrics & Gynecology
DX: A56.11 Chlamydial female pelvic inflammatory disease (principal)
CPT/HCPCS: 99213

== ENCOUNTER 2023-09-11 20:08 | Emergency (ER) | payer MEDICAID, SELFPAY ==
--- NOTE | ~2023-09-11 | US_ITS ---
EXAMINATION: US PELVIS CLINICAL INFORMATION: Ovarian torsion COMPARISON: None available. TECHNIQUE: Ultrasound of the pelvis is performed using both transabdominal and transvaginal transducers along with Doppler. Transvaginal imaging is performed due to inadequate visualization transabdominally. FINDINGS: Uterus: The uterus is anteverted and measures 7.8 x 4.6 x 5.0 cm. The double wall endometrial thickness is 10 mm. The uterus is smooth in contour and has normal myometrial echogenicity. No visible fibroid. Adnexa: Both ovaries are visualized. There is normal color flow to the adnexa. There is no ovarian torsion. There is no pelvic ascites or fluid collection. Right ovary measures 4.2 x 2.3 x 2.3 cm. 12 mL with a 1.9 cm corpus luteum cyst Left ovary measures 2.9 x 2.0 x 1.6 cm. 5 mL US/US pelvic and transvaginal IMPRESSION: No evidence for ovarian torsion. Small corpus luteum cyst in the right ovary.
--- NOTE | ~2023-09-11 | US_ITS ---
EXAMINATION: US PELVIS CLINICAL INFORMATION: Ovarian torsion COMPARISON: None available. TECHNIQUE: Ultrasound of the pelvis is performed using both transabdominal and transvaginal transducers along with Doppler. Transvaginal imaging is performed due to inadequate visualization transabdominally. FINDINGS: Uterus: The uterus is anteverted and measures 7.8 x 4.6 x 5.0 cm. The double wall endometrial thickness is 10 mm. The uterus is smooth in contour and has normal myometrial echogenicity. No visible fibroid. Adnexa: Both ovaries are visualized. There is normal color flow to the adnexa. There is no ovarian torsion. There is no pelvic ascites or fluid collection. Right ovary measures 4.2 x 2.3 x 2.3 cm. 12 mL with a 1.9 cm corpus luteum cyst Left ovary measures 2.9 x 2.0 x 1.6 cm. 5 mL US/US pelvic ovarian doppler IMPRESSION: No evidence for ovarian torsion. Small corpus luteum cyst in the right ovary.
[2023-09-11 20:11] VITALS: BP 109/52; PULSE 68; RESP 14; TEMP 36.7; O2SAT 99; BMI 26.2
--- NOTE | 2023-09-11 20:15 | ED.GENADULT ---
HPI - General Adult General Chief complaint: Abdominal Pain Stated complaint: lower abd pain Time Seen by Provider: 09/12/23 02:29 Source: patient Mode of arrival: ambulatory Limitations: no limitations History of Present Illness HPI narrative: Patient complaining of suprapubic discomfort since yesterday evening been sexually active with multiple partners no vaginal discharge history of chlamydia in the past patient is status post appendectomy Related Data Home Medications Medication Instructions Recorded Confirmed cholecalciferol (vitamin D3) 50 50 mcg PO DAILY 06/14/23 06/14/23 mcg (2,000 unit) capsule hydroxyzine HCl 50 mg tablet 100 mg PO BEDTIME 06/14/23 06/14/23 vitamin with calcium 1 tab PO DAILY 06/14/23 06/14/23 no.72-iron 27 mg-folic acid 1 mg tablet (M- Plus) venlafaxine 150 mg 150 mg PO DAILY 06/14/23 06/14/23 capsule,extended release 24 hr Previous Rx's Medication Instructions Recorded docusate sodium 100 mg capsule 100 mg PO BID PRN constipation #30 06/17/23 (Colace) caps doxycycline monohydrate 100 mg 100 mg PO BID #28 tabs 06/17/23 tablet metronidazole 500 mg tablet 500 mg PO BID #28 tabs 06/17/23 oxycodone 5 mg tablet 5 mg PO Q4H PRN pain (scale score 06/17/23 7-10) #20 tabs doxycycline hyclate 100 mg tablet 100 mg PO BID #14 tabs 09/12/23 ibuprofen 600 mg tablet 600 mg PO Q6H PRN fever or pain 09/12/23 #30 tabs metronidazole 500 mg tablet 500 mg PO BID 7 days #14 tabs 09/12/23 Allergies Allergy/AdvReac Type Severity Reaction Status Date / Time No Known Allergies Allergy Verified 09/11/23 20:10 Review of Systems Review of Systems: Yes all other systems are reviewed and are negative PMFSH Past Medical History Medical History Painful menstrual periods Surgical History History of laparoscopic appendectomy (06/15/23) Social History Social History Household Members: Family and Children Housing: House Do you presently have visiting nurse or other home services: No Comment: counts correct Patient Tobacco Use Status: Never used Tobacco Substance Use Type: IV Drugs Advance Directives: No Advance Directives Information Provided: Yes service: No Physical Exam ED Vital Signs: Vital Signs - 24 hr 09/11/23 20:11 09/12/23 02:13 Temperature 98.0 F 98.7 F Pulse Rate 68 66 Respiratory Rate 14 14 Blood Pressure 109/52 L 123/53 L Pulse Oximetry 99 99 Oxygen Delivery Method Room Air Room Air BMI result Body Mass Index 26.2 Appearance: Alert. Oriented X3. No acute distress. ENT: Pharynx normal. Oral Mucosa moist Neck: Normal inspection. Neck supple. CVS: Normal heart rate and rhythm. Pulses normal. Respiratory: No respiratory distress. Equal air entry bilateral, Abdomen: Soft mild suprapubic discomfort no rebound tenderness Bowel sounds are present, no mass palpable, no CVA tenderness Skin: Skin warm and dry. Normal skin color. Normal skin turgor. Neuro: Oriented X 3. Course Course Course Narrative: RME: 33 yold female presents to the ED for lower abdominal pain that began today. patietn postive for tendrness on palpation of bilateral lower abdomen. Labs ordered. INfromed Nurse Cece about patient's tender abdomen and that she should be brought to the ED. Medications Administered Discontinued Medications Generic Name Dose Route Start Last Admin Trade Name Freq PRN Reason Stop Dose Admin Ceftriaxone Sodium 500 mg/ 0 mg 09/12/23 02:39 09/12/23 02:53 Lidocaine HCl 1 ml IM 09/12/23 02:40 350 kit ONCE ONE Administration Doxycycline Monohydrate 100 mg 09/12/23 02:39 09/12/23 02:53 Doxycycline Monohydrate 100 Mg Capsule PO 09/12/23 02:40 100 mg ONCE ONE Administration Ibuprofen 600 mg 09/12/23 02:50 09/12/23 02:59 Ibuprofen 600 Mg Tablet PO 09/12/23 02:51 600 mg ONCE ONE Administration Metronidazole 500 mg 09/12/23 02:39 09/12/23 02:53 Metronidazole 500 Mg Tablet PO 09/12/23 02:40 500 mg ONCE ONE Administration Medical Decision Making Differential Diagnosis Differential Diagnoses: The differential diagnosis associated with the presentation includes Ovarian cyst/UTI/STI Lab Data [facility] Lab Attestation statement: I reviewed the patient's lab results. 09/11/23 20:27 09/11/23 20:27 Labs: Lab Results 09/11/23 09/12/23 Range/Units 20:27 02:42 WBC 10.1 (4.8-10.8) X10*3/uL RBC 4.05 L D (4.20-5.50) X10*6/uL Hgb 12.0 D (12.0-16.0) g/dl Hct 35.9 L D (37.0-47.0) % MCV 88.6 (80.0-98.0) fL MCH 29.6 (27.0-33.0) pg MCHC 33.4 (31.0-35.0) g/dl RDW 12.8 (11.0-16.0) % Plt Count 295 (160-400) X10*3/uL MPV 9.6 (9.4-12.3) fL Immature Gran % (Auto) 0.2 (0.0-0.4) % Neut % (Auto) 49.9 (45-73) % Lymph % (Auto) 41.9 H (20-40) % [place] % (Auto) 4.7 (2-11) % Eos % (Auto) 2.9 (0-4) % Baso % (Auto) 0.4 (0-2) % Lymph # (Auto) 4.2 (1.2-4.9) X10*3/uL [place] # (Auto) 0.5 (0.1-1.2) X10*3/uL Eos # (Auto) 0.3 (0.0-0.4) X10*3/uL Baso # (Auto) 0.0 (0.0-0.2) X10*3/uL Abs Immat Gran (auto) 0.02 (0.00-0.03) X10*3/uL Absolute Neuts (auto) 5.0 (2.0-8.3) x10*3/uL Absolute Nucleated RBC 0.000 (0.0-0.012) X10*3/uL Nucleated RBC % (auto) 0.0 (0.0-0.2) /100WBC Sodium 140 (135-145) mmol/L Potassium 4.0 (3.3-5.1) mmol/L Chloride 106 (96-108) mmol/L Carbon Dioxide 26 (22-29) mmol/L Anion Gap 12 (12-20) BUN 9 (9-16) mg/dL Creatinine 0.74 (0.5-1.4) mg/dL Estim Creat Clear Calc 97.6 Estimated GFR > 60 Random Glucose 89 (60-115) mg/dL Calcium 9.8 D (8.4-10.2) mg/dL Total Bilirubin 0.3 (0.0-1.0) mg/dL AST 16 (5-31) U/L ALT 9 (0-31) U/L Alkaline Phosphatase 52 (39-117) U/L Total Protein 7.6 (6.5-8.0) g/dL Albumin 4.5 (3.5-5.0) g/dL Beta HCG, Quant < 2 mIU/mL Urine Color Yellow Urine Appearance Clear Urine pH 7.5 (5.0-9.0) Ur Specific [place] 1.010 (1.005-1.025) Urine Protein Negative (Neg-Trace) mg/dL Urine Glucose (UA) Negative (Negative) mg/dL Urine Ketones Negative (Negative) mg/dL Urine Blood Trace H (Negative) Urine Nitrite Negative (Negative) Ur Leukocyte Esterase Negative (Negative) Urine RBC 0-2 (0-2) /HPF Urine WBC 0-5 (0-5) /HPF Ur Squamous Epith Cells 0-2 (0-2) /HPF Urine Bacteria None Seen (None Seen) Hyaline Casts 0-2 (0-2) /LPF Urine Test NEGATIVE (NEGATIVE) Chlam trachomat DNA PCR NOT DETECTED (Not Detect.) N.gonorrhoeae DNA (PCR) NOT DETECTED (Not Detect.) Independent Interpretation I performed an independent interpretation of an: Ultrasound Radiology Impression Discussion of test interpretation with radiology: I have reviewed the radiologist's reading. Radiologist Impression: [address] [address] Ultrasound Report Signed Patient: Jill Leiva MR#: [id number] : 1990 Acct:[id number] Age/Sex: 33 / F ADM Date: 09/11/23 Loc: HO.ED Attending Dr: Ordering Physician: Cristofer Acosta Date of Service: 09/11/23 Procedure(s): US pelvic and transvaginal Accession Number(s): [id number] cc: Cristofer Acosta; MALISSA DOTY PA-C~ EXAMINATION: US PELVIS CLINICAL INFORMATION: Ovarian torsion COMPARISON: None available. TECHNIQUE: Ultrasound of the pelvis is performed using both transabdominal and transvaginal transducers along with Doppler. Transvaginal imaging is performed due to inadequate visualization transabdominally. FINDINGS: Uterus: The uterus is anteverted and measures 7.8 x 4.6 x 5.0 cm. The double wall endometrial thickness is 10 mm. The uterus is smooth in contour and has normal myometrial echogenicity. No visible fibroid. Adnexa: Both ovaries are visualized. There is normal color flow to the adnexa. There is no ovarian torsion. There is no pelvic ascites or fluid collection. Right ovary measures 4.2 x 2.3 x 2.3 cm. 12 mL with a 1.9 cm corpus luteum cyst Left ovary measures 2.9 x 2.0 x 1.6 cm. 5 mL US/US pelvic and transvaginal IMPRESSION: No evidence for ovarian torsion. Small corpus luteum cyst in the right ovary. Discharge Plan Discharge Clinical Impression: Sexually transmitted disease exposure, Cyst of right ovary Patient Disposition: Home, Self-Care Instructions: Ovarian Cyst (ED), Postexposure Prophylaxis (ED) Additional Instructions: Have safe sex practice You have been given prophylactic treatment for sexually transmitted disease pending cultures You have very small right ovarian cyst which should disappear in 1 month Report to the ER/PCP if worsening of pain Prescriptions: New doxycycline hyclate 100 mg tablet 100 mg PO BID Qty: 14 0RF metronidazole 500 mg tablet 500 mg PO BID 7 Days Qty: 14 0RF ibuprofen 600 mg tablet 600 mg PO Q6H PRN (Reason: fever or pain) Qty: 30 0RF No Action venlafaxine 150 mg capsule,extended release 24hr 150 mg PO DAILY hydroxyzine HCl 50 mg tablet 100 mg PO BEDTIME cholecalciferol (vitamin D3) 50 mcg (2,000 unit) capsule 50 mcg PO DAILY M- Plus 27 mg iron- 1 mg tablet 1 tab PO DAILY doxycycline monohydrate 100 mg tablet 100 mg PO BID Qty: 28 0RF metronidazole 500 mg tablet 500 mg PO BID Qty: 28 0RF docusate sodium [Colace] 100 mg capsule 100 mg PO BID PRN (Reason: constipation) Qty: 30 0RF oxycodone 5 mg tablet 5 mg PO Q4H PRN (Reason: pain (scale score 7-10)) Qty: 20 0RF Rx Instructions: Partial Fill upon patient request. Interventions: ED Discharge Assessment Last Done: 09/12/23 03:00 Discharge Date/Time: 09/12/23 03:05
[2023-09-11 20:32] LABS: MANUAL DIFF FLAG NO
[2023-09-11 20:35] LABS: Appearance Urine Clear; Basophils Percent Auto 0.4 % (0-2); Color Urine Yellow; Eosinophils Absolute Auto 0.3 X10*3/uL (0.0-0.4); Eosinophils Percent Auto 2.9 % (0-4); Glucose Urine UA Negative (Negative); Hematocrit 35.9 % (37.0-47.0); Imm Gran Abs Auto 0.02 X10*3/uL (0.00-0.03); Imm Gran Pct Auto 0.2 % (0.0-0.4); Leukocyte Esterase Urine Negative (Negative); Lymphocytes Absolute Auto 4.2 X10*3/uL (1.2-4.9); Lymphocytes Percent Auto 41.9 % (20-40); Mean Corpuscular HGB Conc 33.4 g/dl (31.0-35.0); Mean Corpuscular Hemoglobin 29.6 pg (27.0-33.0); Mean Corpuscular Volume 88.6 fL (80.0-98.0); Mean Platelet Volume 9.6 fL (9.4-12.3); Monocytes Absolute Auto 0.5 X10*3/uL (0.1-1.2); Monocytes Percent Auto 4.7 % (2-11); Neutrophils Percent Auto 49.9 % (45-73); Nitrite Urine Negative (Negative); PH 7.5 (5.0-9.0); Platelet Count 295 X10*3/uL (160-400); Red Blood Count 4.05 X10*6/uL (4.20-5.50); Red Cell Distribution Width 12.8 % (11.0-16.0); UMIC TRIGGER UACC YES; Urine Blood Trace (Negative); Urine Ketones Negative (Negative); Urine Protein Negative (Neg-Trace); White Blood Count 10.1 X10*3/uL (4.8-10.8)
[2023-09-11 20:38] LABS: UPreg QC Valid YES; Urine Pregnancy NEGATIVE (NEGATIVE)
[2023-09-11 20:54] LABS: Alanine Aminotransferase 9 U/L (0-31); Albumin Level 4.5 g/dL (3.5-5.0); Alkaline Phosphatase 52 U/L (39-117); Anion Gap 12 (12-20); Aspartate Amino Transferase 16 U/L (5-31); Bilirubin Total 0.3 mg/dL (0.0-1.0); Blood Urea Nitrogen 9 mg/dL (9-16); Calcium 9.8 mg/dL (8.4-10.2); Carbon Dioxide 26 mmol/L (22-29); Chloride 106 mmol/L (96-108); Creatinine Clr Calc Pharmacy 97.6; Estimated Glomerular Filt Rate > 60; Glucose Random 89 mg/dL (60-115); HCG Quantitative < 2 mIU/mL; Sodium 140 mmol/L (135-145); Total Protein 7.6 g/dL (6.5-8.0)
[2023-09-11 21:09] LABS: Bacteria Urine None Seen (None Seen); Hyaline Casts Urine 0-2 /LPF (0-2); RBC Urine 0-2 /HPF (0-2); Squamous Epithelial Cell Urine 0-2 /HPF (0-2); WBC Urine 0-5 /HPF (0-5)
[2023-09-12 02:13] VITALS: BP 123/53; PULSE 66; RESP 14; TEMP 37.1; O2SAT 99
[2023-09-12] MEDS: cefTRIAXone sodium 500 MG, Lidocaine HCl 1 % MPF 1 ML IM (02:53)
[2023-09-12] MEDS: Doxycycline Monohydrate 100 MG CAPSULE PO (02:53)
[2023-09-12] MEDS: metroNIDAZOLE 500 MG TABLET PO (02:53)
[2023-09-12] MEDS: Ibuprofen 600 MG TABLET PO (02:59)
[2023-09-12 05:26] LABS: CT PCR NOT DETECTED (Not Detect.); NG PCR NOT DETECTED (Not Detect.)
== END 2023-09-12 03:05 | disposition home or self-care (01) ==
PROVIDERS: Physician Assistant; Emergency Provider Internal Medicine; PCP Physician Assistant Medical
DX: Z20.2 Contact with and (suspected) exposure to infections with a predominantly sexual mode of transmission (principal); N83.11 Corpus luteum cyst of right ovary; R10.30 Lower abdominal pain, unspecified
CPT/HCPCS: 0353U; 36415; 76830; 76856; 80053; 81001; 81025; 84702; 85025; 93975; 96372; 99284; J0696

== ENCOUNTER 2023-10-03 15:30 | Outpatient (REF) | payer MEDICAID, SELFPAY ==
[2023-10-04 11:48] LABS: CT PCR NOT DETECTED (Not Detect.); NG PCR NOT DETECTED (Not Detect.)
== END 2023-10-03 15:31 | disposition home or self-care (01) ==
LOC: HO.LNP 15:30
PROVIDERS: PCP Physician Assistant Medical; Visit Provider Obstetrics & Gynecology
DX: A56.11 Chlamydial female pelvic inflammatory disease (principal)
CPT/HCPCS: 0353U; 99212

== ENCOUNTER 2023-10-03 15:30 | Outpatient (AMB) | payer MEDICAID, SELFPAY ==
[2023-10-03 15:35] VITALS: BP 112/62; BMI 26.2
--- NOTE | 2023-10-03 15:35 | MHC.OFFVIS ---
Intake Vital Signs 10/03/23 15:35 Height 5 ft 3 in Weight 148 lb BMI 26.2 BP 112/62 Intake Visit Reasons: JIHAN/ Ultrasound results Massage Operator Required: No Information Interpreted: non-clinical & clinical Life Insurance Salesperson: Life Insurance Salesperson Present Accompanied by: Self / Same As Patient Allergies No Known Allergies Allergy (Verified 10/03/23 15:39) HPI HPI Comments History of Present Illness Details Presenting for 3 months JIHAN and follow-up ultrasound regarding PID seen on CT scan. Pelvic ultrasound done on 09/11/2023 showed the following: Uterus: The uterus is anteverted and measures 7.8 x 4.6 x 5.0 cm. The double wall endometrial thickness is 10 mm. The uterus is smooth in contour and has normal myometrial echogenicity. No visible fibroid. Adnexa: Both ovaries are visualized. There is normal color flow to the adnexa. There is no ovarian torsion. There is no pelvic ascites or fluid collection. Right ovary measures 4.2 x 2.3 x 2.3 cm. 12 mL with a 1.9 cm corpus luteum cyst Left ovary measures 2.9 x 2.0 x 1.6 cm. 5 mL The patient is doing well with no pelvic pain or any other concerns PFSH Medical History Painful menstrual periods Surgical History History of laparoscopic appendectomy (06/15/23) Social History Household Members: Family and Children Housing: House Do you presently have visiting nurse or other home services: No Comment: counts correct Patient Tobacco Use Status: Never used Tobacco Substance Use Type: IV Drugs service: No Review of Systems Const All systems reviewed & are unremarkable except as noted in HPI and below Physical Exam Vital Signs: Last Vital Signs BP 112/62 10/03/23 15:35 BMI result Body Mass Index 26.2 General: Yes no CVA tenderness External Female Exam: normal external appearance and normal appearance of the urethra Speculum Exam - Vagina: normal appearance of the vagina, normal palpation, no lesions and no masses Speculum Exam - Cervix: normal appearance of the cervix, normal palpation, no lesions, no masses and nontender Bimanual exam- vagina & uterus: normal bimanual exam, normal palpation, uterine size normal, normal palpation, uterine shape normal, No Cervical tenderness present and non-tender Bimanual Exam- Adnexa, other: normal adnexae Back/Spine/Pelvis Back: no CVA tenderness Assessment & Plan Assessment & Plan (1) Chlamydial pelvic inflammatory disease: Code(s): A56.11 - Chlamydial female pelvic inflammatory disease Plan: JIHAN repeated, discussed with the patient the results of the ultrasound showing no evidence of residual tubo-ovarian abscess. All questions answered, the patient verbalized understanding Coding Level of Care Code Est Pt Level 3 (26187) Diagnoses Chlamydial pelvic inflammatory disease A56.11
== END 2023-10-03 16:00 ==
LOC: HO.HWS 15:31
PROVIDERS: PCP Physician Assistant Medical; Visit Provider Obstetrics & Gynecology
DX: A56.11 Chlamydial female pelvic inflammatory disease (principal)
CPT/HCPCS: 99213

== ENCOUNTER 2023-12-05 10:07 | Outpatient (AMB) | payer MEDICAID, SELFPAY ==
--- NOTE | 2023-12-05 10:12 | A.OFFVIS_ITS ---
Vital Signs 12/05/23 10:13 Height 5 ft 3 in Weight 147 lb 11.355 oz BMI 26.2 BP 116/68 Intake Visit Reasons: annual Intake Note: no concern Laborer Adjustable Steel Joist Required: No Information Interpreted: non-clinical & clinical Locker Attendant: Locker Attendant Present (Gemma WRIGHT) Accompanied by: Self / Same As Patient Allergies No Known Allergies Allergy (Verified 12/05/23 10:17) Is last menstrual period known: Yes Last menstrual period: 11/15/23 HPI Comments Details: Presenting for annual exam. No complaints. The patient would like STD screen Last Pap/HPV was many years ago [facility] Medical History Painful menstrual periods Surgical History History of laparoscopic appendectomy (06/15/23) Social History Household Members: Family and Children Housing: House Do you presently have visiting nurse or other home services: No Comment: counts correct Patient Tobacco Use Status: Never used Tobacco Substance Use Type: IV Drugs service: No Female Reproductive History Menstrual Date of last menstrual period: 11/15/23 Total pregnancies: 6 Full term: 2 Number of Living Children: 2 Ab spontaneous: 4 Review of Systems Const All systems reviewed & are unremarkable except as noted in HPI and below Card Reports as per HPI Resp Reports as per HPI GI Reports as per HPI and Reports no additional complaints Reports as per HPI Physical Exam Vital Signs: Last Vital Signs BP 116/68 12/05/23 10:13 BMI result Body Mass Index 26.2 Const General: cooperative, healthy appearing and comfortable Chest Chest palpation & inspection: normal inspection of the chest and normal palpation of entire chest wall Breast/axilla inspection: normal inspection of the breasts and normal inspection of the axillae Breast/axilla palpation: normal palpation of the breasts, normal palpation of the axillae and no axillary lymphadenopathy Resp Effort & Inspection: normal respiratory effort Auscultation: clear to auscultation bilaterally Percussion: percussion normal Cardio Palpation: normal PMI Rate: regular rate Rhythm: regular rhythm Heart sounds: no murmurs and no rubs Peripheral pulses: Peripheral pulses 2+ throughout GI Inspection: Yes normal to inspection Palpation (GI): Soft to palpation, nontender, no guarding, not rigid and No hepatosplenomegaly present Percussion: Yes normal to percussion Auscultation: normal bowel sounds Rectal Exam - Female: deferred General: Yes bladder normal to palpation External Female Exam: No lesion Speculum Exam - Vagina: normal appearance of the vagina, normal palpation, normal vaginal discharge and not erythematous Speculum Exam - Cervix: normal appearance of the cervix and normal palpation Bimanual exam- vagina & uterus: normal bimanual exam, normal palpation, uterine size normal, bladder normal to palpation, consistency normal and normal palpation Bimanual Exam- Adnexa, other: normal adnexae, no masses and no tenderness Assessment & Plan Assessment & Plan (1) Well woman exam: Code(s): Z01.419 - Encounter for gynecological examination (general) (routine) without abnormal findings Category: Medical Plan: Cotesting done. Counseled the patient about the recommended dietary allowance of 1000 mg of Calcium & 600 IU of vitamin D. The patient was instructed to perform monthly self-breast exams and to schedule an annual exam in a year; All questions answered and the patient verbalized understanding. Instructed the patient to schedule annual exam in a year (2) Screen for STD (sexually transmitted disease): Code(s): Z11.3 - Encounter for screening for infections with a predominantly sexual mode of transmission Category: Medical Plan: STD screening tests done includes: BV panel for trichomonas, GC/CT will send patient for serology std screening for HIV, RPR, Hep b s Ag, HepC Ab. Instructions given the patient to schedule a follow-up appointment for repeat serology screen in 6 months for possible false negatives. Orders: Orders HIV Ab/Ag Today Z20.2 - Contact with and (suspected) exposure to infections with a predominantly sexual mode of transmission Hepatitis B Surface Antigen Today Z20.2 - Contact with and (suspected) exposure to infections with a predominantly sexual mode of transmission Hepatitis C Antibody Today Z20.2 - Contact with and (suspected) exposure to infections with a predominantly sexual mode of transmission Syphilis Screen Today Z20.2 - Contact with and (suspected) exposure to infections with a predominantly sexual mode of transmission Coding Level of Care Code Est Pt Prev Care 18-39y(11365) Diagnoses Well woman exam Z01.419 Screen for STD (sexually transmitted disease) Z11.3
[2023-12-05 10:13] VITALS: BP 116/68; BMI 26.2
== END 2023-12-05 10:32 | disposition home or self-care (01) ==
PROVIDERS: PCP Physician Assistant Medical; Visit Provider Obstetrics & Gynecology
DX: Z01.419 Encounter for gynecological examination (general) (routine) without abnormal findings (principal); Z11.3 Encounter for screening for infections with a predominantly sexual mode of transmission
CPT/HCPCS: 99395

== ENCOUNTER 2023-12-05 10:07 | Outpatient (REF) | payer MEDICAID, SELFPAY ==
[2023-12-09 21:13] LABS: HPV mRNA E6/E7 rflx Not Detected (Not Detected)
== END 2023-12-05 10:08 | disposition home or self-care (01) ==
LOC: HO.LNP 10:07
PROVIDERS: PCP Physician Assistant Medical; Visit Provider Obstetrics & Gynecology
DX: Z01.419 Encounter for gynecological examination (general) (routine) without abnormal findings (principal); Z11.51 Encounter for screening for human papillomavirus (HPV)
CPT/HCPCS: 87624; 88142; 99395

== ENCOUNTER 2023-12-05 10:37 | Outpatient (REF) | payer MEDICAID, SELFPAY ==
[2023-12-05 13:43] LABS: CT PCR NOT DETECTED (Not Detect.); NG PCR NOT DETECTED (Not Detect.)
[2023-12-06 08:30] LABS: HBsAGNum1 0.37 S/CO (0.00-0.99); HIV AB/AG Nonreactive (Nonreactive); HIV Num 1 0.06 S/CO (0.00-0.99); Hepatitis B Surface Antigen Negative (Negative); ~HepC Num1 0.22 S/CO (0.00-0.79); ~Hepatitis C Antibody Nonreactive (Nonreactive)
[2023-12-06 08:45] LABS: Syphilis Screen Nonreactive (Nonreactive)
[2023-12-06 12:49] LABS: BV Int Neg Control Negative (Negative); BV Int Pos Control Positive (Positive)
== END 2023-12-05 10:38 | disposition home or self-care (01) ==
LOC: HO.LAB 10:37
PROVIDERS: PCP Physician Assistant Medical; Visit Provider Obstetrics & Gynecology
DX: Z01.419 Encounter for gynecological examination (general) (routine) without abnormal findings (principal); Z11.3 Encounter for screening for infections with a predominantly sexual mode of transmission; Z20.2 Contact with and (suspected) exposure to infections with a predominantly sexual mode of transmission
CPT/HCPCS: 0353U; 86780; 86803; 87340; 87389; 87480; 87510; 87660

== ENCOUNTER 2024-02-04 13:47 | Outpatient (REF) | payer MEDICAID, SELFPAY ==
[2024-02-04 18:19] LABS: CT PCR NOT DETECTED (Not Detect.); NG PCR NOT DETECTED (Not Detect.)
[2024-02-05 08:16] LABS: Syphilis Screen Nonreactive (Nonreactive)
[2024-02-05 08:29] LABS: HBsAGNum1 0.28 S/CO (0.00-0.99); HIV AB/AG Nonreactive (Nonreactive); HIV Num 1 0.05 S/CO (0.00-0.99); Hepatitis B Surface Antigen Negative (Negative); ~HepC Num1 0.23 S/CO (0.00-0.79); ~Hepatitis C Antibody Nonreactive (Nonreactive)
== END 2024-02-04 13:48 | disposition home or self-care (01) ==
LOC: HO.LAB 13:47
PROVIDERS: PCP Physician Assistant Medical; Visit Provider Obstetrics & Gynecology
DX: Z20.2 Contact with and (suspected) exposure to infections with a predominantly sexual mode of transmission (principal)
CPT/HCPCS: 0353U; 36415; 86780; 86803; 87340; 87389; 99212

== ENCOUNTER 2024-02-04 13:47 | Outpatient (AMB) | payer MEDICAID, SELFPAY ==
--- NOTE | 2024-02-04 13:49 | MHC.OFFVIS ---
Vital Signs 02/04/24 13:50 Height 5 ft 3 in Weight 147 lb 11.355 oz BMI 26.2 Intake Visit Reasons: std testing Coil Wrapper Required: No Information Interpreted: non-clinical & clinical Disc Pad Grinding Machine Feeder: Disc Pad Grinding Machine Feeder Present (Gemma De Paz KYLE) Accompanied by: Self / Same As Patient Allergies No Known Allergies Allergy (Verified 02/04/24 13:54) HPI Comments Details: Presenting requesting STD screening. No complaint COUNTS INCLUDE 234 BEDS AT [facility] Medical History Painful menstrual periods Surgical History History of laparoscopic appendectomy (06/15/23) Social History Household Members: Family and Children Housing: House Do you presently have visiting nurse or other home services: No Comment: counts correct Patient Tobacco Use Status: Never used Tobacco Substance Use Type: IV Drugs service: No Review of Systems Const All systems reviewed & are unremarkable except as noted in HPI and below Physical Exam Vital Signs: BMI result Body Mass Index 26.2 General: Yes no CVA tenderness External Female Exam: normal external appearance and normal appearance of the urethra Speculum Exam - Vagina: normal appearance of the vagina, normal palpation, no lesions and no masses Speculum Exam - Cervix: normal appearance of the cervix, normal palpation, no lesions, no masses and nontender Bimanual exam- vagina & uterus: normal bimanual exam, normal palpation, uterine size normal, normal palpation, uterine shape normal, No Cervical tenderness present and non-tender Bimanual Exam- Adnexa, other: normal adnexae Back/Spine/Pelvis Back: no CVA tenderness Assessment & Plan Assessment & Plan (1) Screen for STD (sexually transmitted disease): Code(s): Z11.3 - Encounter for screening for infections with a predominantly sexual mode of transmission Category: Medical Plan: STD screening tests done includes: BV panel for trichomonas, GC/CT will send patient for serology std screening for HIV, RPR, Hep b s Ag, HepC Ab. Instructions given the patient to schedule a follow-up appointment for repeat serology screen in 6 months for possible false negatives. Orders: Orders Hepatitis C Antibody Today Z20.2 - Contact with and (suspected) exposure to infections with a predominantly sexual mode of transmission Hepatitis B Surface Antigen Today Z20.2 - Contact with and (suspected) exposure to infections with a predominantly sexual mode of transmission HIV Ab/Ag Today Z20.2 - Contact with and (suspected) exposure to infections with a predominantly sexual mode of transmission Syphilis Screen Today Z20.2 - Contact with and (suspected) exposure to infections with a predominantly sexual mode of transmission Coding Level of Care Code Est Pt Level 3 (82378) Diagnoses Screen for STD (sexually transmitted disease) Z11.3
[2024-02-04 13:50] VITALS: BMI 26.2
== END 2024-02-04 14:28 | disposition home or self-care (01) ==
PROVIDERS: PCP Physician Assistant Medical; Visit Provider Obstetrics & Gynecology
DX: Z11.3 Encounter for screening for infections with a predominantly sexual mode of transmission (principal)
CPT/HCPCS: 99213

== ENCOUNTER 2024-02-04 14:22 | Outpatient (REF) | payer MEDICAID, SELFPAY ==
[2024-02-04 17:59] LABS: Bacterial Vaginosis PCR NEGATIVE (Negative); Candida Group PCR DETECTED (Not Detect); Candida glab krusei PCR NOT DETECTED (Not Detect); Trichomonas vaginalis PCR NOT DETECTED (Not Detect)
== END 2024-02-04 14:23 | disposition home or self-care (01) ==
LOC: HO.LNP 14:22
PROVIDERS: Visit Provider Obstetrics & Gynecology
DX: Z11.3 Encounter for screening for infections with a predominantly sexual mode of transmission (principal)
CPT/HCPCS: 0352U

== ENCOUNTER 2024-04-23 07:58 | Emergency (ER) | payer MEDICAID, SELFPAY ==
[2024-04-23 07:59] VITALS: BP 136/61; PULSE 63; RESP 20; TEMP 36.6; O2SAT 97; BMI 24.1
--- NOTE | 2024-04-23 08:06 | ED_ITS ---
HPI - Dental/Oral General Chief complaint: Dental/Oral Stated complaint: Tooth pain Time Seen by Provider: 04/23/24 08:06 Source: patient Mode of arrival: ambulatory Limitations: no limitations History of Present Illness ED Provider: FARAZ TAY PA-C HPI Narrative: 33 year old female presents to the ED today for evaluation of dental pain x6 days. Pain localized to bottom right molar. Denies trauma/ injury to the face/ mouth. Has been taking Advil at home without relief. Last dose around 700 this morning. Has not seen a dentist in some time. She states she was supposed to have crown placed to area of discomfort 1 year ago however did not follow up. Denies fever, chills, N/V, odynophagia, dysphagia neck pain. MD Complaint: tooth pain Teeth map: 2 1. Related Data Home Medications ?Medication ?Instructions ?Recorded ?Confirmed cholecalciferol (vitamin D3) 50 50 mcg PO DAILY 06/14/23 06/14/23 mcg (2,000 unit) capsule hydroxyzine HCl 50 mg tablet 100 mg PO BEDTIME 06/14/23 06/14/23 vitamin with calcium 1 tab PO DAILY 06/14/23 06/14/23 no.72-iron 27 mg-folic acid 1 mg tablet (M- Plus) venlafaxine 150 mg 150 mg PO DAILY 06/14/23 06/14/23 capsule,extended release 24 hr Previous Rx's ?Medication ?Instructions ?Recorded docusate sodium 100 mg capsule 100 mg PO BID PRN constipation #30 06/17/23 (Colace) caps doxycycline monohydrate 100 mg 100 mg PO BID #28 tabs 06/17/23 tablet metronidazole 500 mg tablet 500 mg PO BID #28 tabs 06/17/23 oxycodone 5 mg tablet 5 mg PO Q4H PRN pain (scale score 06/17/23 7-10) #20 tabs doxycycline hyclate 100 mg tablet 100 mg PO BID #14 tabs 09/12/23 ibuprofen 600 mg tablet 600 mg PO Q6H PRN fever or pain 09/12/23 #30 tabs metronidazole 500 mg tablet 500 mg PO BID 7 days #14 tabs 09/12/23 terconazole 0.8 % vaginal cream 1 appful vaginal BEDTIME 3 days 02/05/24 #20 grams amoxicillin 875 mg-potassium 1 tab PO BID 7 days #14 tabs 04/23/24 clavulanate 125 mg tablet tramadol 50 mg tablet 50 mg PO BID PRN pain (scale score 04/23/24 4-6) #7 tabs Allergies Allergy/AdvReac Type Severity Reaction Status Date / Time No Known Allergies Allergy Verified 04/23/24 08:01 Review of Systems 2 Review of Systems: Constitutional: No fever, chills, fatigue, night sweats, weight changes ENT/Mouth: No ear pain, hearing loss, nasal congestion, sinus pain, rhinorrhea, sore throat, +dental pain Eyes: No eye pain, swelling, redness, vision changes, discharge Cardio: No chest pain, palpitations, LOUIS, orthopnea, peripheral edema Pulm: No SOB, cough, sputum, wheezing, dyspnea, hemoptysis GI: No nausea, vomiting, hematemesis, abdominal pain, diarrhea, constipation, hematochezia, melena : No irregular bleeding, dysuria, frequency, urgency, hesitancy, hematuria, flank pain, urinary flow changes, urinary incontinence or retention MSK: No back pain, neck pain, joint pain, myalgias Skin: No lesions, rashes Neuro: No weakness, numbness, paresthesias, LOC, dizziness, headache Psych: No anxiety/panic, depression, SI/HI, AH/VH All other systems reviewed and are negative. [facility] Past Medical History Attestation statement: The following information was validated with the patient. Source: old records reviewed and nursing notes reviewed Medical History Painful menstrual periods Surgical History History of laparoscopic appendectomy (06/15/23) Social History Social History Household Members: Family and Children Housing: House Do you presently have visiting nurse or other home services: No Comment: counts correct Patient Tobacco Use Status: Never used Tobacco Substance Use Type: IV Drugs service: No Physical Exam 2 Vital Signs: Vital Signs: Last Vital Signs Temp 97.9 F 04/23/24 07:59 Pulse 63 04/23/24 07:59 Resp 20 04/23/24 07:59 BP 136/61 09/12/24 07:59 Pulse Ox 97 04/23/24 07:59 O2 Del Method Room Air 04/23/24 07:59 BMI result Body Mass Index 24.1 Vital signs stable, afebrile. General: Well appearing, in no acute distress. Skin: Warm, dry, intact. No rashes or lesions. Head: Normocephalic, atraumatic. EENT: Hearing is intact b/l. Conjunctiva clear. Sclera is anicteric. PERRLA. EOM intact. Moist mucous membranes.? + No facial edema. Tongue and lips wnl + multiple dental caries and poor dentit ion. right lower molar with localized periapical swelling to the buccal ginginva. No pointing. No active bleeding/ discharge. TTP. No palpable fluctuance. + No edema to buccal mucosa. Posterior o ropharynx without erythema/edema. Uvula midline. Controlling secretions and speaking in complete sentences + No submandublar or submental LAD, No c ervical LAD. No anterior neck swelling. Cardiac: Chest wall symmetric. RRR. No MRG. No JVD. Lungs: Normal respiratory effort without accessory muscle use. CTA bilaterally. No rales, rhonchi, or wheezes.? Neuro: AOx3. Normal speech. CN 2-12 grossly intact. Strength 5/5 intact throughout. No saddle anesthesia. Sensation intact to light touch. NV intact distally. Reflexes 2+ bilaterally. Ambulating with steady gait. Psych: Appropriate mood and affect. Responds appropriately to questions. Course Course Course Narrative: 6076 -- Patient noted to have dental infection. There is no evidence of abscess that warrants drainage at this time. Will treat patient's pain and patient will be discharged home on Augmentin to ensure there is no worsening infection for follow-up with dentist. Patient advised to follow up with dentist this week. A referral has been provided. Patient has remained stable throughout ED visit today. I discussed worrisome signs and symptoms and when to return to the ED. All questions answered at this time. Patient is agreeable with disposition and stable for discharge. Medical Decision Making Medical Decision Making MDM Narrative: 33 year old female presents to the ED today for evaluation of dental pain x6 days. Vital signs stable, afebrile. She is nontoxic appearing in no acute distress. On exam, No facial edema. Tongue and lips wnl. multiple dental caries and poor dentition. right lower molar with localized periapical swelling to the buccal ginginva. No pointing. No active bleeding/ discharge. TTP. No palpable fluctuance. No edema to buccal mucosa. Posterior oropharynx without erythema/edema. Uvula midline. Controlling secretions and speaking in complete sentences. No submandublar or submental LAD, No cervical LAD. No anterior neck swelling. Differential includes dental/ periapical abscess/infection. Unlikely mono, herpes, sialadenitis, sialolithiasis, SCRIPT WRITER, retropharyngeal abscess, deep neck infection, osteomyelitis, facial cellulitis/ abscess, lymphoma. Plan for pain control and discharge home with antibiotics and dentist follow up. Differential Diagnosis Differential Diagnoses: The differential diagnosis associated with the presentation includes as above. Admission/Observation Not indicated. Tests considered The following testing was considered but not selected: I considered obtaining a CT of the soft tissues neck however these is no evidence of ludwigs angina or concern for deep tissue infection. Not warranted at this time. Prescription Management I considered prescription management with: Pain Medication (Tramadol) and Antibiotic (Augmentin) Social Determinants Patient?s care significantly limited by Social Determinants of Health including: Other Social Determinant of Health Critical Care Time Critical Care Time Critical Care Time: No Discharge Plan Discharge Clinical Impression: Dental caries Patient Disposition: Home, Self-Care Instructions: Tooth Extraction (DC) Additional Instructions: You were evaluated in ED today for dental pain. You have a dental infection. Augmentin is an antibiotic that has been sent to your pharmacy for treatment. Take this as prescribed and do not skip any doses. Take this to completion or the infection may persist or worsen. On Augmentin, softer bowel movements are to be expected. Call your provider if you move your bowels more than 4 times a day, your bowel movements are almost all liquid, or you get a rash.? Take tylenol/ motrin at home as needed for pain. Tramadol is a pain medication that has been sent to your pharmacy for you to take for break-through pain. Use this with caution. YOU NEED TO FOLLOW UP WITH A DENTIST. You have been provided with a referral to [facility]. They are currently taking new clients. Call them to make an appointment. They will not call you. Return with new or worsening symptoms. In the case of an emergency call 911. [facility]: [phone] [facility] [id number] Prescriptions: New amoxicillin-pot clavulanate 875-125 mg tablet 1 tab PO BID 7 Days Qty: 14 0RF tramadol 50 mg tablet 50 mg PO BID PRN (Reason: pain (scale score 4-6)) Qty: 7 0RF No Action terconazole 0.8 % cream 1 appful vaginal BEDTIME 3 Days Qty: 20 0RF doxycycline hyclate 100 mg tablet 100 mg PO BID Qty: 14 0RF metronidazole 500 mg tablet 500 mg PO BID 7 Days Qty: 14 0RF ibuprofen 600 mg tablet 600 mg PO Q6H PRN (Reason: fever or pain) Qty: 30 0RF venlafaxine 150 mg capsule,extended release 24hr 150 mg PO DAILY hydroxyzine HCl 50 mg tablet 100 mg PO BEDTIME cholecalciferol (vitamin D3) 50 mcg (2,000 unit) capsule 50 mcg PO DAILY M-Samra Plus 27 mg iron- 1 mg tablet 1 tab PO DAILY doxycycline monohydrate 100 mg tablet 100 mg PO BID Qty: 28 0RF metronidazole 500 mg tablet 500 mg PO BID Qty: 28 0RF docusate sodium [Colace] 100 mg capsule 100 mg PO BID PRN (Reason: constipation) Qty: 30 0RF oxycodone 5 mg tablet 5 mg PO Q4H PRN (Reason: pain (scale score 7-10)) Qty: 20 0RF Rx Instructions: Partial Fill upon patient request. Referrals: Nemo Bedolla PA-C [Primary Care Provider] - Print Language: [place]
[2024-04-23 08:50] VITALS: BP 136/61; PULSE 63; RESP 20; TEMP 36.6; O2SAT 97
== END 2024-04-23 08:50 | disposition home or self-care (01) ==
PROVIDERS: Emergency Provider Emergency Medicine; PCP Physician Assistant Medical
DX: K02.9 Dental caries, unspecified (principal); Z79.899 Other long term (current) drug therapy
CPT/HCPCS: 99282; 99283

== ENCOUNTER 2024-06-24 11:12 | Outpatient (AMB) | payer MEDICAID, SELFPAY ==
--- NOTE | 2024-06-24 11:31 | MHC.OFFVIS ---
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 Allergies No Known Allergies Allergy (Verified 06/24/24 11:42) Medication List - Last Reconciled 06/24/24 by Dawn Stewart LPN amoxicillin-pot clavulanate 875-125 mg 1 tab PO BID 7 days cholecalciferol (vitamin D3) 50 mcg PO DAILY docusate sodium (Colace) 100 mg PO BID PRN doxycycline hyclate 100 mg PO BID doxycycline monohydrate 100 mg PO BID hydroxyzine HCl 100 mg PO BEDTIME ibuprofen 600 mg PO Q6H PRN metronidazole 500 mg PO BID metronidazole 500 mg PO BID 7 days oxycodone 5 mg PO Q4H PRN PNV,calcium 81-pdth-snxld acid 27 mg iron- 1 mg (M-Samra Plus) 1 tab PO DAILY terconazole 0.8% 1 appful vaginal BEDTIME 3 days tramadol 50 mg PO BID PRN venlafaxine ER 150 mg PO DAILY Is last menstrual period known: Yes Last menstrual period: 06/07/24 Patient : No PFSH Medical History Painful menstrual periods Surgical History History of laparoscopic appendectomy (06/15/23) Social History Household Members: Family and Children Housing: House Do you presently have visiting nurse or other home services: No Comment: counts correct Patient Tobacco Use Status: Never used Tobacco Substance Use Type: IV Drugs service: No Female Reproductive History Menstrual Age of Menarche: 10 Duration of menses: 3-5 days Date of last menstrual period: 06/07/24 control method: none Total pregnancies: 4 Full term: 0 Number of Living Children: 0 Ab spontaneous: 4 Coding
[2024-06-24 11:49] VITALS: BP 98/58
--- NOTE | 2024-06-24 11:49 | MHC.OFFVIS ---
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 Allergies No Known Allergies Allergy (Verified 06/24/24 11:42) Medication List - Last Reconciled 06/24/24 by Dawn Stewart LPN amoxicillin-pot clavulanate 875-125 mg 1 tab PO BID 7 days cholecalciferol (vitamin D3) 50 mcg PO DAILY docusate sodium (Colace) 100 mg PO BID PRN doxycycline hyclate 100 mg PO BID doxycycline monohydrate 100 mg PO BID hydroxyzine HCl 100 mg PO BEDTIME ibuprofen 600 mg PO Q6H PRN metronidazole 500 mg PO BID metronidazole 500 mg PO BID 7 days oxycodone 5 mg PO Q4H PRN PNV,calcium 87-jycu-txatg acid 27 mg iron- 1 mg (M-Samra Plus) 1 tab PO DAILY terconazole 0.8% 1 appful vaginal BEDTIME 3 days tramadol 50 mg PO BID PRN venlafaxine ER 150 mg PO DAILY HPI Comments Details: Patient is here today for all STD testing. She denies any pelvic pain or urinary symptoms. Admits to increased discharge with slight odor. Has regular monthly menses. Not using control, taking vitamins, was hoping for a future . UPI one week ago. [facility] Medical History Painful menstrual periods Surgical History History of laparoscopic appendectomy (06/15/23) Social History Household Members: Family and Children Housing: House Do you presently have visiting nurse or other home services: No Comment: counts correct Patient Tobacco Use Status: Never used Tobacco Substance Use Type: IV Drugs Patient : No service: No Female Reproductive History Menstrual Age of Menarche: 10 Duration of menses: 3-5 days Date of last menstrual period: 06/07/24 control method: none Total pregnancies: 4 Full term: 0 Number of Living Children: 0 Ab spontaneous: 4 Review of Systems Const All systems reviewed & are unremarkable except as noted in HPI and below Physical Exam Vital Signs: Last Vital Signs BP 98/58 L 06/24/24 11:49 Const General: cooperative, healthy appearing and no acute distress Orientation/consciousness: patient oriented x3 GI Inspection: Yes normal to inspection Palpation (GI): Soft to palpation and Other GI palpation findings present (Nontender) Rectal Exam - Female: visual inspection normal General: Yes bladder normal to palpation External Female Exam: normal appearance of the urethra Speculum Exam - Vagina: normal appearance of the vagina, normal palpation and normal vaginal discharge (Thick and abundant) Speculum Exam - Cervix: normal appearance of the cervix and normal palpation Bimanual exam- vagina & uterus: normal bimanual exam, normal palpation, uterine size normal, bladder normal to palpation, normal palpation, uterine shape normal and non-tender Bimanual Exam- Adnexa, other: normal adnexae Neuro General: patient oriented x3 Results AMB Test Urine AMB Test Urine Negative Last Edit by Dawn Setwart LPN on 06/24/24 11:53 Assessment & Plan Assessment & Plan (1) Vaginal odor: Code(s): N89.8 - Other specified noninflammatory disorders of vagina (2) Possible exposure to STD: Code(s): Z20.2 - Contact with and (suspected) exposure to infections with a predominantly sexual mode of transmission Plan Plan GC chlamydia and BV panel, await results for plan of care. Blood work ordered follow up pending results as needed. Advised safe sex condoms if indicated. Annual exam scheduled for November 2024. All of her questions and concerns were addressed to the best of my ability and shared decision making. She is agreeable to the plan of care. This note is constructed using voice recognition software. While every effort has been made to ensure accuracy, secondary english teacher errors may have been included. Orders: Orders HIV Ab/Ag Today Z20.2 - Contact with and (suspected) exposure to infections with a predominantly sexual mode of transmission Syphilis Screen Today Z20.2 - Contact with and (suspected) exposure to infections with a predominantly sexual mode of transmission Hepatitis C Antibody Reflex Today Z20.2 - Contact with and (suspected) exposure to infections with a predominantly sexual mode of transmission Hepatitis B Core Antibody Today Z20.2 - Contact with and (suspected) exposure to infections with a predominantly sexual mode of transmission Medications: Discontinued metronidazole Discontinued Reason: No Longer Medically Relevant 500 mg PO BID 28 tabs 0RF doxycycline hyclate Discontinued Reason: No Longer Medically Relevant 100 mg PO BID 14 tabs 0RF metronidazole Discontinued Reason: No Longer Medically Relevant 500 mg PO BID 7 days 14 tabs 0RF amoxicillin-pot clavulanate 875-125 mg Discontinued Reason: No Longer Medically Relevant 1 tab PO BID 7 days 14 tabs 0RF doxycycline monohydrate Discontinued Reason: No Longer Medically Relevant 100 mg PO BID 28 tabs 0RF Coding Level of Care Code Est Pt Level 3 (63169) Diagnoses Vaginal odor N89.8 Possible exposure to STD Z20.2
== END 2024-06-24 12:02 | disposition home or self-care (01) ==
PROVIDERS: PCP Physician Assistant Medical; Visit Provider Advanced Practice Midwife
DX: N89.8 Other specified noninflammatory disorders of vagina (principal); Z20.2 Contact with and (suspected) exposure to infections with a predominantly sexual mode of transmission
CPT/HCPCS: 99213

== ENCOUNTER 2024-06-24 11:12 | Outpatient (REF) | payer MEDICAID, SELFPAY ==
[2024-06-25 03:16] LABS: CT PCR NOT DETECTED (Not Detect.); NG PCR NOT DETECTED (Not Detect.)
[2024-06-25 08:06] LABS: Syphilis Screen Nonreactive (Nonreactive)
[2024-06-25 08:20] LABS: HBc Num1 0.04 S/CO (0.00-0.79); HIV AB/AG Nonreactive (Nonreactive); HIV Num 1 0.07 S/CO (0.00-0.99); Hepatitis B Core Antibody Nonreactive (Nonreactive); ~HepC Num1 0.23 S/CO (0.00-0.79); ~Hepatitis C Antibody Nonreactive (Nonreactive)
[2024-06-25 12:06] LABS: Bacterial Vaginosis PCR POSITIVE (Negative); Candida Group PCR NOT DETECTED (Not Detect); Candida glab krusei PCR NOT DETECTED (Not Detect); Trichomonas vaginalis PCR NOT DETECTED (Not Detect)
== END 2024-06-24 11:13 | disposition home or self-care (01) ==
LOC: HO.LAB 11:12
PROVIDERS: PCP Physician Assistant Medical; Visit Provider Advanced Practice Midwife
DX: N89.8 Other specified noninflammatory disorders of vagina (principal); Z20.2 Contact with and (suspected) exposure to infections with a predominantly sexual mode of transmission; Z11.3 Encounter for screening for infections with a predominantly sexual mode of transmission
CPT/HCPCS: 0352U; 36415; 86704; 86780; 86803; 87389; 87491; 87591; 99212

== ENCOUNTER 2024-06-24 12:49 | Outpatient (REF) | payer MEDICAID, SELFPAY | END 2024-06-24 12:50 | disposition home or self-care (01) | LOC: HO.LNP 12:49 | PROVIDERS: Visit Provider Advanced Practice Midwife | DX: Z13.89 Encounter for screening for other disorder (principal) ==

== ENCOUNTER 2024-11-04 11:05 | Outpatient (REF) | payer MEDICAID, SELFPAY ==
[2024-11-04 12:49] LABS: Syphilis Screen Nonreactive (Nonreactive)
[2024-11-04 12:52] LABS: HBc Num1 0.03 S/CO (0.00-0.79); HIV AB/AG Nonreactive (Nonreactive); HIV Num 1 0.07 S/CO (0.00-0.99); Hepatitis B Core Antibody Nonreactive (Nonreactive); ~HepC Num1 0.33 S/CO (0.00-0.79); ~Hepatitis C Antibody Nonreactive (Nonreactive)
[2024-11-04 18:26] LABS: Bacterial Vaginosis PCR POSITIVE (Negative); Candida Group PCR DETECTED (Not Detect); Candida glab krusei PCR NOT DETECTED (Not Detect); Trichomonas vaginalis PCR NOT DETECTED (Not Detect)
[2024-11-04 21:29] LABS: CT PCR NOT DETECTED (Not Detect.); NG PCR NOT DETECTED (Not Detect.)
== END 2024-11-04 11:06 | disposition home or self-care (01) ==
LOC: HO.LNP 11:05
PROVIDERS: PCP Physician Assistant Medical; Visit Provider Advanced Practice Midwife
DX: Z20.2 Contact with and (suspected) exposure to infections with a predominantly sexual mode of transmission (principal); N93.0 Postcoital and contact bleeding
CPT/HCPCS: 81515; 86704; 86780; 86803; 87389; 87491; 87591; 99212

== ENCOUNTER 2024-11-04 11:05 | Outpatient (AMB) | payer MEDICAID, SELFPAY ==
[2024-11-04 11:08] VITALS: BP 112/70; BMI 23.9
--- NOTE | 2024-11-04 11:08 | MHC.OFFVIS ---
Vital Signs 11/04/24 11:08 Height 5 ft 3 in Weight 135 lb BMI 23.9 BP 112/70 Intake Visit Reasons: std testing Intake Note: pt c/o bleeding after intercourse once recently Tenant Relations Coordinator: Tenant Relations Coordinator Present (Jazmine) Allergies No Known Allergies Allergy (Verified 11/04/24 11:08) Is last menstrual period known: Yes Last menstrual period: 10/26/24 HPI Comments Details: Patient is here today for STD screening, history of recent intimacy and postcoital bleeding around her cycle time. She denies any urinary symptoms or pelvic pain. [facility] Medical History Painful menstrual periods Surgical History History of laparoscopic appendectomy (06/15/23) Social History Household Members: Family and Children Housing: House Do you presently have visiting nurse or other home services: No Comment: counts correct Patient Tobacco Use Status: Never used Tobacco Substance Use Type: IV Drugs service: No Female Reproductive History Menstrual Age of Menarche: 10 Duration of menses: 3-5 days Date of last menstrual period: 10/26/24 control method: none Review of Systems Const All systems reviewed & are unremarkable except as noted in HPI and below Physical Exam Vital Signs: Last Vital Signs BP 112/70 11/04/24 11:08 BMI result Body Mass Index 23.9 Const General: cooperative, healthy appearing and no acute distress Orientation/consciousness: patient oriented x3 GI Inspection: Yes normal to inspection Palpation (GI): Soft to palpation and Other GI palpation findings present (Nontender) Rectal Exam - Female: visual inspection normal General: Yes bladder normal to palpation External Female Exam: normal appearance of the urethra Speculum Exam - Vagina: normal appearance of the vagina, normal palpation and other (Scant discharge clear color) Speculum Exam - Cervix: normal appearance of the cervix and normal palpation Bimanual exam- vagina & uterus: normal bimanual exam, normal palpation, uterine size normal, bladder normal to palpation, normal palpation, uterine shape normal and non-tender Bimanual Exam- Adnexa, other: normal adnexae Neuro General: patient oriented x3 Assessment & Plan Assessment & Plan (1) Possible exposure to STD: Code(s): Z20.2 - Contact with and (suspected) exposure to infections with a predominantly sexual mode of transmission Plan: Cervical cultures obtained, plan STDs screening blood work today at the lab orders in place. (2) Postcoital bleeding: Code(s): N93.0 - Postcoital and contact bleeding Plan BV panel, GC chlamydia obtained await results for plan of care. Admits to finger cleaning in the shower. Reviewed echo system of the vaginal area, role bacteria. Discuss: probiotic use and vaginal health. Strongly advised consistent use of condoms. If bleeding persist to follow up in the office. Keep AG appt. next month. The patient expressed understanding and agreement with the plan of care. All of her questions and concerns were addressed to the best of my ability. This note is constructed using voice recognition software. While every effort has been made to ensure accuracy, key account executive errors may have been included. Orders: Orders CT NG by PCR Today Z20.2 - Contact with and (suspected) exposure to infections with a predominantly sexual mode of transmission Bacterial Vaginosis Panel Today Z20.2 - Contact with and (suspected) exposure to infections with a predominantly sexual mode of transmission HIV Ab/Ag Today Z20.2 - Contact with and (suspected) exposure to infections with a predominantly sexual mode of transmission Hepatitis C Antibody Reflex Today Z20.2 - Contact with and (suspected) exposure to infections with a predominantly sexual mode of transmission Hepatitis B Core Antibody Today Z20.2 - Contact with and (suspected) exposure to infections with a predominantly sexual mode of transmission Syphilis Screen Today Z20.2 - Contact with and (suspected) exposure to infections with a predominantly sexual mode of transmission Coding Level of Care Code Est Pt Level 3 (62079) Diagnoses Possible exposure to STD Z20.2 Postcoital bleeding N93.0
--- OUTSIDE RECORDS SUMMARY | 2024-11-04 13:23 | XMS_ITS | Clinical Summary ---
Author Organization Formerly [facility] Address [address] [place] [address] Care Team Providers Care Surgical Appliance Fitter Name Role Phone Unavailable Primary Care Provider Unavailabl e Social History Tobacco Use Types Packs/Day Years Used Date Smoking Tobacco: Never Assessed Sex and Gender Information Value Date Recorded Sex Assigned at Not on file Gender Identity Not on file Sexual Orientation Not on file Plan of Treatment Health Maintenance Due Date Last Done Comments Hepatitis C Virus Screening 1988 HIV Screening 2001 DTaP/Tdap/Td Vaccines (1 - Tdap) 2007 Hepatitis B Vaccines (1 of 3 - 19+ 3-dose series) 2007 COVID-19 Vaccine (2023-2 5 season) 2024 HPV Vaccines Aged Out No longer eligi ble based on patient's age to complete this topic Pneumococcal Vaccine: Pediat roxy (0-5 Years) and At-Risk Patients (6 to 49 Years) Aged Out No longer eligible b ased on patient's age to complete this topic
--- OUTSIDE RECORDS SUMMARY | 2024-11-04 13:23 | XMS_ITS | Clinical Summary ---
Author Organization [facility] Address [address] [place] [address] Phone Care Team Providers Care Stage Driver Name Role Phone Esau Dc Primary Care Provider [phone] Immunizations Immunization Administration Dates Next Due DTP 12/07/1992, 1,01/20/1990,1989,1988 Hep B, ped/adol 06/16/2001,01/28/2001 Hib (PRP-T) 01/20/1990 IPV 12/07/1992, 1,09/18/1989,1988 MMR 11/28/1995,01/20/1990 Td (adult) (MBL), 2 Lf tetan us toxoid, PF, adsorbed 01/28/2001 Varicella 03/22/1998 Family History Relation Name Status Comments Brother Brother: Asthma Father Father: d Mother Mother: Asthma, Hypertension Sister Alive Sister: Alive a nd well, Asthma Social History Tobacco Use Types Packs/Day Years Used Date Smoking Tobacco: Never Assessed Comments Unknown Sex and Gender Information Value Date Recorded Sex Assigned at Not on file Legal Sex Female 4:15 PM EDT Gender Identity Not on file Sexual Orientation Not on file Plan of Treatment Health Maintenance Due Date Last Done Comments Varicella Vaccines (2 of 2 - 2-dose childhood series) 06/14/1998 03/22/1998 DTaP,Tdap,and Td Vaccines (6 - Tdap) 01/29/2001 01/28/2001, 12/07/1992, 01/29/1991, Additional history exists Hepatitis B Vaccines (3 of 3 - 3-dose series) 08/11/2001 06/16/2001, 01/28/2001 Influenza Vaccines (#1) 2024 COVID-19 Vaccine ( season) 2024 HIB Vaccines Completed 01/20/1990 IPV Vaccines Completed 12/07/1992, 01/11, 09/18/1989, Additional history exists MMR Vaccines Completed 11/28/1995, 01/20/1990 HPV Vaccines Aged Out No longer eligi ble based on patient's age to complete this topic Hepatitis A Vaccines Aged Out No long er eligible based on patient's age to complete this topic Men B Vaccine Aged Out No longer elig ible based on patient's age to complete this topic Meningococcal Vaccine Aged Out No shine betsy eligible based on patient's age to complete this topic Pneumococcal Vaccine Aged Out No long er eligible based on patient's age to complete this topic Care Teams Stage Driver Relationship Specialty Start Date End Date Esau Dc [address] [place] [id number] PCP - General 03/22/17
--- OUTSIDE RECORDS SUMMARY | 2024-11-04 13:23 | XMS_ITS | Encounter Summary ---
Author Organization [facility] Address [address] [place] [address] Phone Care Team Providers Care Lead Case Manager Name Role Phone Esau Dc Primary Care Provider [phone] Encounter Details Date Type Department Care Team (Late st Contact Info) Description 03/28/2017 Conversion Encounter [facility] [place] [address] [place] [address] Social History Tobacco Use Types Packs/Day Years Used Date Smoking Tobacco: Never Assessed Comments Unknown Sex and Gender Information Value Date Recorded Sex Assigned at Not on file Legal Sex Female 4:15 PM EDT Gender Identity Not on file Sexual Orientation Not on file documented as of this encounter Plan of Treatment Not on file documented as of this encounter Visit Diagnoses Not on filedocumented in this encounter Care Teams Lead Case Manager Relationship Specialty Start Date End Date Esau Dc [address] [place] [address] PCP - General 03/22/17 documented as of this encounter
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
--- OUTSIDE RECORDS SUMMARY | 2024-11-04 13:23 | XMS_ITS | Data Portability ---
Author Organization [facility], [facility] Address [address], [address] [place] [address] Assessment No assessment recorded. Plan of Treatment Reminders Order Date Submit Date Provider Last Modified By Organization Details Last Modified Time Details Appointments None record ed. Lab None record ed. Referral None record ed. Procedures None record ed. Surgeries None record ed. Imaging None record ed. Medication Orders None record ed. Patient TargetsNo targets recorded. Patient InstructionsNo instructions recorded. Reason for Referral None Reported. Medical Equipment None Reported. Medications Name Sig Start Date Stop Date Status Note LastModified by Organization Details LastModified Time metronidazole 0.75 % (37.5 mg/5 gram) vaginal gel active Not Available Not Avai lable Not Available valacyclovir 500 mg tablet active Not Available Not Available No t Available ferrous sulfate 325 mg (65 mg iron) tablet active Not Available Not Available Not Available pseudoephedrine 30 mg tablet active Not Available Not Available Not Available loratadine 10 mg tablet active Not Available Not Available Not Available Plus (calcium carbonate) 27 mg iron-1 mg tablet active Not Available Not Avail able Not Available Vitamin D3 50 mcg (2,000 unit) capsule active Not Available Not Available Not Available Vitals None Recorded Social History None recorded. Functional Status None recorded. Mental Status None recorded. Family History Nothing Reported. Medical History No medical history recorded. Gynecological HistoryNo gynecological history recorded. Obstetrics History GPAL:G 0 P 0 0 0 0 Past Encounters Encounter ID Performer Location Encounter Start Date Encounter Closed Date Diagnosis/Indication Diagnosis SNOMED-CT Code Diagnosis ICD10 Code Diagnosis Note [id number] [address] 10/01/2017 12:49:45 10/01/2017 12:50:02 Health Concerns Section Related Observation LastModified by Organization Detai ls LastModified Time None Recorded Concern Status LastModified by Organization Details LastModified Time None Recorded Advance Directives Directive None Recorded Payers Encounter Date Sequence Insurance Name Policy Number Policy Alas Covered Member ID Alas Member ID Guarantor Name 09/27/2017 1 [facility] (MEDICAID HMO) [id number] Jill Leiva [id number] Jill Leiva OBGyn Episode No OBEpisode recorded.
== END 2024-11-04 11:31 | disposition home or self-care (01) ==
LOC: HO.HWS 11:05
PROVIDERS: PCP Physician Assistant Medical; Visit Provider Advanced Practice Midwife
DX: Z20.2 Contact with and (suspected) exposure to infections with a predominantly sexual mode of transmission (principal); N93.0 Postcoital and contact bleeding
CPT/HCPCS: 99213

== ENCOUNTER 2024-11-04 11:27 | Outpatient (REF) | payer MEDICAID, SELFPAY | END 2024-11-04 11:28 | disposition home or self-care (01) | LOC: HO.LAB 11:27 | PROVIDERS: PCP Physician Assistant Medical; Visit Provider Advanced Practice Midwife | DX: Z13.89 Encounter for screening for other disorder (principal) ==

== ENCOUNTER 2025-08-10 16:41 | Emergency (ER) | payer MEDICAID, SELFPAY ==
[2025-08-10 17:10] VITALS: BP 138/60; PULSE 81; RESP 16; TEMP 36.7; O2SAT 98; BMI 24.8
--- NOTE | 2025-08-10 17:11 | ED.PREGNANCY ---
HPI - General Chief complaint: Nausea/Vomiting/Diarrhea Stated complaint: vomiting/hot flashes/not feeling good Time Seen by Provider: 08/10/25 20:30 History of Present Illness ED Provider: eladio HPI Narrative: 35 F LMP 2 mo ago. Nausea. No abd pain/VG or discharge. No dysuria/flank pain or fever Related Data Home Medications ?Medication ?Instructions ?Recorded ?Confirmed cholecalciferol (vitamin D3) 50 50 mcg PO DAILY 06/14/23 06/24/24 mcg (2,000 unit) capsule hydroxyzine HCl 50 mg tablet 100 mg PO BEDTIME 06/14/23 06/24/24 vitamins with calcium 1 tab PO DAILY 06/14/23 06/24/24 no.72-iron 27 mg-folic acid 1 mg tablet (M-Samra Plus) venlafaxine 150 mg 150 mg PO DAILY 06/14/23 06/24/24 capsule,extended release 24 hr Previous Rx's ?Medication ?Instructions ?Recorded docusate sodium 100 mg capsule 100 mg PO BID PRN constipation #30 06/17/23 (Colace) caps oxycodone 5 mg tablet 5 mg PO Q4H PRN pain (scale score 06/17/23 7-10) #20 tabs ibuprofen 600 mg tablet 600 mg PO Q6H PRN fever or pain 09/12/23 #30 tabs terconazole 0.8 % vaginal cream 1 appful vaginal BEDTIME 3 days 02/05/24 #20 grams tramadol 50 mg tablet 50 mg PO BID PRN pain (scale score 04/23/24 4-6) #7 tabs metronidazole 0.75 % (37.5 mg/5 1 appful vaginal BEDTIME 5 days 06/25/24 gram) vaginal gel #70 grams metronidazole 500 mg tablet 500 mg PO BID 7 days #14 tabs 11/10/24 metoclopramide HCl 5 mg tablet 5 mg PO DAILY 1 week #7 tabs 08/10/25 (Reglan) vitamins no.144-folic 2 tab PO DAILY 1 month #60 tabs 08/10/25 acid 400 mcg chewable tablet () Allergies Allergy/AdvReac Type Severity Reaction Status Date / Time No Known Allergies Allergy Verified 08/10/25 17:13 [facility] Past Medical History Medical History Painful menstrual periods Surgical History History of laparoscopic appendectomy (06/15/23) Social History Social History Household Members: Family and Children Housing: House Do you presently have visiting nurse or other home services: No Comment: counts correct Patient Tobacco Use Status: Never used Tobacco Substance Use Type: IV Drugs Advance Directives: No Advance Directives Information Provided: No Do you have a plan to hurt others: No Plan service: No Physical Exam Exam: Exam: EXAM: Gen: Alert, awake, well appearing, well hydrated. Head: Atraumatic Eyes: Anicteric, Normal conjunctiva. ENT: Moist mucosa, no pallor. Neck: Supple. Respiratory: Breathing comfortably, No distress.Clear to auscultation bilaterally, symmetric chest expansion, No wheeze, rales, ronchi. Cardiovascular: Regular rate and rhythm. No murmurs or rub. Well perfused periphery, warm extremities. No edema. Abdominal: Soft, no objective distension. No palpable masses or obvious organomegaly. No focal tenderness, no guarding, no rebound tenderness or other peritoneal findings. : No flank tenderness. Neuro: Alert. Gross movement of all extremities intact. Vital signs: See flowsheet Vital Signs: Vital Signs: Last Vital Signs Temp 98.5 F 08/10/25 21:28 Pulse 76 08/10/25 21:28 Resp 16 08/10/25 21:28 BP 136/68 08/10/25 21:28 Pulse Ox 95 08/10/25 21:28 O2 Del Method Room Air 08/10/25 21:28 BMI result Body Mass Index 24.8 Course Course Course Narrative: This is a Rapid Medical Exam performed in triage by Nanette Correa PA-C. Full HPI, ROS and PE to be performed by primary ED provider. 35-year-old female presenting to the ED c/o nausea, vomiting since last week. + home test today. LMP last month, unsure of date. Reports taking antibiotic recently for STI however discontinued due to being unsure if this is safe in . Denies abdominal pain, vaginal bleeding PE: NAD, nontoxic appearing Plan: Labs, UA Medical Decision Making Medical Decision Making MDM Narrative: 35-year-old female nausea vomiting missed period. Early does not seem to have any significant complications. vitamins counseling. OBGYN follow up at [facility] Lab Data 08/10/25 18:59 08/10/25 18:59 Labs: Lab Results 08/10/25 08/10/25 Range/Units 18:59 20:57 WBC 11.6 H (4.8-10.8) X10*3/uL RBC 4.00 L (4.20-5.50) X10*6/uL Hgb 11.6 L (12.0-16.0) g/dl Hct 34.9 L (37.0-47.0) % MCV 87.3 (80.0-98.0) fL MCH 29.0 (27.0-33.0) pg MCHC 33.2 (31.0-35.0) g/dl RDW 12.7 (11.0-16.0) % Plt Count 353 (160-400) X10*3/uL MPV 9.6 (9.4-12.3) fL Immature Gran % (Auto) 0.3 (0.0-0.4) % Neut % (Auto) 73.4 H (45-73) % Lymph % (Auto) 21.4 (20-40) % Bertie % (Auto) 3.9 (2-11) % Eos % (Auto) 0.7 (0-4) % Baso % (Auto) 0.3 (0-2) % Lymph # (Auto) 2.5 (1.2-4.9) X10*3/uL Bertie # (Auto) 0.5 (0.1-1.2) X10*3/uL Eos # (Auto) 0.1 (0.0-0.4) X10*3/uL Baso # (Auto) 0.0 (0.0-0.2) X10*3/uL Abs Immat Gran (auto) 0.03 (0.00-0.03) X10*3/uL Absolute Neuts (auto) 8.5 H (2.0-8.3) x10*3/uL Absolute Nucleated RBC 0.000 (0.0-0.012) X10*3/uL Nucleated RBC % (auto) 0.0 (0.0-0.2) /100WBC Sodium 136 (135-145) mmol/L Potassium 4.5 (3.3-5.1) mmol/L Chloride 104 (96-108) mmol/L Carbon Dioxide 24 (22-29) mmol/L Anion Gap 13 (12-20) BUN 12 (9-16) mg/dL Creatinine 0.57 (0.5-1.4) mg/dL Estim Creat Clear Calc 116.5 Estimated GFR > 60 Random Glucose 121 H (60-115) mg/dL Calcium 9.7 (8.4-10.2) mg/dL Magnesium 2.1 (1.6-2.6) mg/dL Total Bilirubin 0.3 (0.0-1.0) mg/dL Direct Bilirubin 0.2 (0.0-0.5) mg/dL AST 24 (5-31) U/L ALT 13 (0-31) U/L Alkaline Phosphatase 64 (39-117) U/L Total Protein 8.1 H (6.5-8.0) g/dL Albumin 4.3 (3.5-5.0) g/dL Beta HCG, Quant 05679 mIU/mL Influenza Type A (PCR) NEGATIVE (Negative) Influenza Type B (PCR) NEGATIVE (Negative) RSV RNA Qual (PCR) NEGATIVE (Negative) SARS-CoV-2 RNA (RT-PCR) NEGATIVE (Negative) Procedures Procedure Narrative Procedure Narrative: EMERGENCY ULTLRASOUND INTERPRETATION-Limited Uterus US [This study was ordered, performed, and interpreted by myself. The study reveals: Impression: IUP , approx 9 wk by CRL, 190s HR] [Indication: Uterus: IUP Free Fluid: none Adnexa: NA Quant HCk Performed by: Sukumar Weaver MD Images were stored CPT: 10412] Discharge Plan Discharge Clinical Impression: at early stage Patient Disposition: Home, Self-Care Instructions: (ED) Additional Instructions: You are . You had reassuring lab work and a hormone of 99,000+.HR 190s. DAtes approx 9w01 by [facility] We prescrbed nausea medicine and vitamins. Call [facility] for care as we do not offer these services here. Prescriptions: New metoclopramide HCl [Reglan] 5 mg tablet 5 mg PO DAILY 7 Days Qty: 7 0RF 400 mcg tablet,chewable 2 tab PO DAILY 30 Days Qty: 60 0RF No Action terconazole 0.8 % cream 1 appful vaginal BEDTIME 3 Days Qty: 20 0RF metronidazole 0.75 % (37.5mg/5 gram) gel 1 appful vaginal BEDTIME 5 Days Qty: 70 0RF metronidazole 500 mg tablet 500 mg PO BID 7 Days Qty: 14 0RF Rx Instructions: Take with food, Avoid alcohol and vinegar products ibuprofen 600 mg tablet 600 mg PO Q6H PRN (Reason: fever or pain) Qty: 30 0RF tramadol 50 mg tablet 50 mg PO BID PRN (Reason: pain (scale score 4-6)) Qty: 7 0RF venlafaxine 150 mg capsule,extended release 24hr 150 mg PO DAILY hydroxyzine HCl 50 mg tablet 100 mg PO BEDTIME cholecalciferol (vitamin D3) 50 mcg (2,000 unit) capsule 50 mcg PO DAILY M-Samra Plus 27 mg iron- 1 mg tablet 1 tab PO DAILY docusate sodium [Colace] 100 mg capsule 100 mg PO BID PRN (Reason: constipation) Qty: 30 0RF oxycodone 5 mg tablet 5 mg PO Q4H PRN (Reason: pain (scale score 7-10)) Qty: 20 0RF Rx Instructions: Partial Fill upon patient request. Discharge Date/Time: 08/10/25 21:41 Print Language: Macanese
[2025-08-10 19:03] LABS: MANUAL DIFF FLAG NO
[2025-08-10 19:17] LABS: Hematocrit 34.9 % (37.0-47.0); Hemoglobin 11.6 g/dl (12.0-16.0); Imm Gran Abs Auto 0.03 X10*3/uL (0.00-0.03); Imm Gran Pct Auto 0.3 % (0.0-0.4); Lymphocytes Absolute Auto 2.5 X10*3/uL (1.2-4.9); Mean Corpuscular HGB Conc 33.2 g/dl (31.0-35.0); Mean Corpuscular Hemoglobin 29.0 pg (27.0-33.0); Mean Corpuscular Volume 87.3 fL (80.0-98.0); NRBC Abs Auto 0.000 X10*3/uL (0.0-0.012); NRBC Pct Auto 0.0 /100WBC (0.0-0.2); Platelet Count 353 X10*3/uL (160-400); Red Blood Count 4.00 X10*6/uL (4.20-5.50); White Blood Count 11.6 X10*3/uL (4.8-10.8)
--- OUTSIDE RECORDS SUMMARY | 2025-08-10 19:18 | XMS_ITS | Clinical Summary ---
Author Organization [facility] Address [address] [place] [address] Phone Care Team Providers Care Hide Paster Name Role Phone Esau Dc Primary Care Provider [phone] Immunizations Immunization Administration Dates Next Due DTP [...] 3 - 3-dose series) 08/11/2001 06/16/2001, 01/28/2001 HPV Vaccines (1 - 3-dose SCDM series) 2015 Influenza Vaccines (#1) 2025 COVID-19 Vaccine ( season) 2025 HIB Vaccines Completed 01/20/1990 IPV Vaccines Completed 12/07/1992, 01/11, 09/18/1989, Additional history exists MMR Vaccines Completed 11/28/1995, 01/20/1990 Hepatitis A Vaccines Aged Out No long [...] age to complete this topic Care Teams Hide Paster Relationship Specialty Start Date End Date Esau Dc [address] [place] [address] PCP - General 03/22/17
--- OUTSIDE RECORDS SUMMARY | 2025-08-10 19:18 | XMS_ITS | Encounter Summary ---
Author Organization [facility] Address [address] [place] [address] Phone Care Team Providers Care Cardboard Cutter Name Role Phone Christi Bocanegra MD Primary Care Provider Encounter Details Date Type Department Care Team (Late st Contact Info) Description 07/07/2025 Lab Requisition [facility] Main [address] [place], [place] [id number] Nemo Bedolla PA [address] [place] [phone] Encounter for screening for malignant neoplasm of cervix Social History Tobacco Use Types Packs/Day Years Used Date Smoking Tobacco: Never Assessed Education Answer Date Recorded Are you interested in more education? Not on he e 12/08/2022 Are you concerned about learning? Not on file 12/08/2022 No 12/08/2022 No 12/08/2022 Digital Access Answer Date Recorded No 01/08/2023 No 01/08/2023 Reliable internet access at home? Not on file 01/08/2023 Device with a working camera? Not on file Comments Unknown Sex and Gender Information Value Date Recorded Sex Assigned at Not on file Legal Sex Female 9:27 AM EDT Gender Identity Not on file Sexual Orientation Not on file documented as of this encounter Plan of Treatment Not on file documented as of this encounter Procedures Procedure Name Priority Date/Time Associated Diagnosis Comments PAP TEST Routine 07/06/2025 12:00 AM EST Encounter for screening for malignant neoplasm of cervix documented in this encounter Results * Pap Test (07/06/2025 12:00 AM EST) Final Diagnosis A. PAP TEST: CERVIX SPECIMEN ADEQUACY: Satisfactory for evaluation; transformation zone absent/insufficie nt. INTERPRETATION: Negative For Intraepithelial Lesion or Malignancy. OTHER FINDINGS: Bacterial vaginosis. CASE NOTE: HPV + 07/14/2025 4:53 PM [facility] at 1653 EST Reviewed by MER Priest(ASCP) Pap Methodology This specimen was successfully pre-screened using the [employer] ThinPrep Imaging System. Selected yan from the hand cloth examiner were reviewed by a Steam Train Driver. If indicated, this case was reviewed by a Pathologist. The Pap test is a screening test primarily for detecting cervical Squamous Cell Carcinoma and its precursors. The test has an inherent but low probability of error, with liquid-based methods having a reported false negative rate of about 2%. Regular sampling and follow-up of unexplained clinical signs and symptoms are recommended to minimize false negative results. 07/14/2025 4:53 PM [facility] Clinical History ICD-10: Encounter for screening for malignant neoplasm of cervix 07/14/2025 4:53 PM [facility] LMP? Exact Date 07/14/2025 4:53 PM [facility] LMP 06/08/2025 07/14/2025 4:53 PM [facility] Gross Description A. PAP TEST: CERVIX: 1 Preservcyt vial received labeled with two patient identifiers. 1 ThinPrep slide prepared. 07/14/2025 4:53 PM [facility] Case Note HPV + 07/14/2025 4:53 PM [facility] A. Adequacy Satisfactory for evaluation; transformation zone absent/insufficie nt. 07/14/2025 4:53 PM [facility] A. Interpretation Negative For Intraepithelial Lesion or Malignancy. 07/14/2025 4:53 PM [facility] A. Other Findings Bacterial vaginosis. 07/14/2025 4:53 PM [facility] Pap Collection (Cervix) 07/06/2025 07/07/2025 9:41 AM EST us Nemo CASTILLO LAB CYTOLOGY ORDERABLES Fi nal Result [address] [address] documented in this encounter Visit Diagnoses Diagnosis Encounter for screening for malignant neoplasm of cervix documented in this encounter Care Teams Cardboard Cutter Relationship Specialty Start Date End Date Christi Bocanegra MD [email or web address] PCP - General Family Medicine 11/23/22 documented as of this encounter Additional Source Comments The information contained in this document represents components of the legal health record. It is not the complete legal health record.[facility]
--- OUTSIDE RECORDS SUMMARY | 2025-08-10 19:18 | XMS_ITS | Data Portability ---
Author Organization [facility] Address [address], [address] [place] [address] Assessment No assessment recorded. Plan of Treatment [...] Diagnosis SNOMED-CT Code Diagnosis ICD10 Code Diagnosis IMO Codes Diagnosis Note [id number] Donn Pugh MD [address] [phone] 10/01/2017 12:49:45 10/01/2017 12:50:02 Health Concerns Section Related Observation LastModified by Organization Detai ls LastModified Time None Recorded Concern Status LastModified by Organization Details LastModified Time None Recorded Advance Directives Directive None Recorded Payers Insurance Date Sequence Insurance Name Policy Number Policy Alas Covered Member ID Alas Member ID Guarantor Name 10/11/2017 1 [facility] - [facility] (HMO) [place] Jill L Leiva [id number] Jill Leiva 10/10/2017 1 [facility] (MEDICAID HMO) [id number] Jill L Leiva [id number] Jill Leiva 10/11/2017 1 *SELF PAY* Hi lda Leiva OBGyn Episode No OBEpisode recorded.
--- OUTSIDE RECORDS SUMMARY | 2025-08-10 19:18 | XMS_ITS | Clinical Summary ---
Author Organization [employer] [facility] Address [address] [place] [address] Care Team Providers Care Airline Lounge Receptionist Name Role Phone Filippo Wilcxo MD Primary Care Provider [phone] Surgical History Surgery Date Site/Laterality Comments OTHER [...] Citalopram 10 mg qd on 01/17/18 by [facility]. Depression DX:Depression Family History Medical History [...] on file Sexual Orientation Not on file Last Filed Vital Signs Vital Sign Reading [...] of 3 - 19+ 3-dose series) 2007 HPV Vaccines (1 - 3-dose SCD M series) 2015 Cervical Cancer Screening: P ap Smear 03/15/2024 03/15/2021, 05/22/2018 Depression Screening 08/12/2024 COVID-19 Vaccine (1 - 2024-2 6 season) 2025 Influenza Vaccine (#1) 2025 06/11/2017 DTaP,Tdap,and Td Vaccines (2 - Td or Tdap) 08/14/2027 08/14/2017 RSV Immunization Adult Patients (1 - 1-dose 75+ series) 2063 HIB Vaccines Aged Out No longer eligi [...] age to complete this topic Meningococcal B Vaccine Aged Out No l onger eligible based on patient's age to complete this topic Pneumococcal Vaccine: Pediatrics (0 to 5 Years) and At-Risk Patients (6 to 49 [...] RESULTING AGENCY - 03/30/2021 2:30 PM EDT [id number] THINPREP PAP, IMAGED: ATYPICAL SQUAMOUS CELLS OF UNDETERMINED SIGNIFICANCE (ASCUS) . KWASI BROWN , MER(ASCP) (CASE SCREENED 03 27 2021) WGYN LIMON M.D. , PATHOLOGIST (CASE ELECTRONICALLY SIGNED 03 28 2021) RESULT OF APTIMA HIGH RISK HPV ASSAY: HIGH RISK HPV: POSITIVE (SEROTYPES 16,18,31,33,35,39,45,51,52,56,58,59,66,68) RESULTS OF APTIMA HPV 16 AND 18/45 GENOTYPE ASSAY: HPV 16: NEGATIVE HPV 18/45: NEGATIVE COMPLETED ON 2021-03-20 ADEQUACY: SATISFACTORY ENDOCERVICAL/TRANSFORMATION ZONE COMPONENT PRESENT. SOURCE: THINPREP PAP HPV ANY DX: REFLEX 16 AND 18, CERVICAL, IMAGED CLINICAL INFORMATION: HPV ANY DIAGNOSIS. PAP HX NEG, Z12.4 us Geovanna Angulo MD LAB CYTOLOGY ORDERABLES Fin al Result HISTORICAL TESTING LAB RESULTING AGENCY from Last 3 Months or Most Recently Relevant to Health Maintenance Care Teams Airline Lounge Receptionist Relationship Specialty Start Date End Date Filippo Wilcox MD [address] [place] [address] Dr Reji [place] PCP - General Internal Medicine 09/14/16
--- OUTSIDE RECORDS SUMMARY | 2025-08-10 19:18 | XMS_ITS ---
Author Name [facility] Organization Unknown Encounters Encounter Type Encounter Reason Primary Diagnosis Location Date Ambulatory [facility] 03/18/2025 Care Team Organization Name Specialty Phone Email Start Date End Da te [facility] 03/21
--- OUTSIDE RECORDS SUMMARY | 2025-08-10 19:18 | XMS_ITS | Clinical Summary ---
Author Organization [facility] Address [address] [place] [address] Phone Care Team Providers Care Community Service Worker Name Role Phone Christi Bocanegra MD Primary Care Provider Encounters Date Type Department Care Team Description 07/07/2025 Lab Requisition [facility] Lab Main [address] [place] [address] Nemo Bedolla PA Encounter for screening for malignant neoplasm of cervix from Last 3 Months Social History Tobacco Use Types Packs/Day Years [...] Orientation Not on file Plan of Treatment Not on file Medical Devices Not on file Procedures Procedure Name Priority Date/Time Associated Diagnosis Comments PAP TEST Routine 07/06/2025 12:00 AM EST Encounter for screening for malignant neoplasm of cervix from Last 3 Months Results * Pap Test (07/06/2025 12:00 AM EST) Final Diagnosis A. PAP TEST: CERVIX SPECIMEN ADEQUACY: Satisfactory for evaluation; transformation zone absent/insufficie nt. INTERPRETATION: Negative For Intraepithelial Lesion or Malignancy. OTHER FINDINGS: Bacterial vaginosis. CASE NOTE: HPV + 07/14/2025 4:53 PM EST [facility] at 1653 EST Reviewed by MER Priest(ASCP) Pap Methodology This specimen was successfully pre-screened using the [employer] ThinPrep Imaging System. Selected yan from the dye and chemical coordinator were reviewed by a Entry Level Finance. If indicated, this case was reviewed by [...] minimize false negative results. 07/14/2025 4:53 PM [facility] Clinical History ICD-10: Encounter for screening for malignant neoplasm of cervix 07/14/2025 4:53 PM [facility] LMP? Exact Date 07/14/2025 4:53 PM [facility] LMP 06/08/2025 07/14/2025 4:53 PM [facility] Gross Description A. PAP TEST: CERVIX: 1 Preservcyt vial received labeled with two patient identifiers. 1 ThinPrep slide prepared. 07/14/2025 4:53 PM [facility] Case Note HPV + 07/14/2025 4:53 PM EST [facility] A. Adequacy Satisfactory for evaluation; transformation zone absent/insufficie nt. 07/14/2025 4:53 PM EST [facility] A. Interpretation Negative For Intraepithelial Lesion or Malignancy. 07/14/2025 4:53 PM EST [facility] A. Other Findings Bacterial vaginosis. 07/14/2025 4:53 PM [facility] Pap Collection (Cervix) 07/06/2025 07/07/2025 9:41 AM EST Nemo CASTILLO LAB CYTOLOGY ORDERABLES Fi nal Result [facility] [address] [place] [address] from Last 3 Months Insurance [facility] [employer] Care Teams Community Service Worker Relationship Specialty Start Date End Date Christi Bocanegra MD PCP - General Family Medicine 11/23/22 Additional Source Comments The information contained in this document represents components of the legal health record. It is not the complete legal health record.[facility]
--- OUTSIDE RECORDS SUMMARY | 2025-08-10 19:18 | XMS_ITS | Encounter Summary ---
Author Organization [facility] Address [address] [place] [address] Phone Care Team Providers Care Colorist Dyer Name Role Phone Esau Dc Primary Care Provider [phone] Encounter Details Date Type Department Care Team (Late st Contact Info) Description 03/28/2017 Conversion Encounter [facility] [address] [place] [address] Social History Tobacco Use Types Packs/Day Years [...] on filedocumented in this encounter Care Teams Colorist Dyer Relationship Specialty Start Date End Date Esau Dc [address] [place] [address] PCP - General 03/22/17 documented as of this encounter
--- OUTSIDE RECORDS SUMMARY | 2025-08-10 19:18 | XMS_ITS | Clinical Summary ---
Author Organization [facility] Address [address] [place] [address] Care Team Providers Care Change Management Analyst Name Role Phone Unavailable Primary Care Provider Unavailabl e Social History Tobacco Use Types Packs/Day Years Used Date Smoking Tobacco: Never Assessed Comments Unknown Sex and Gender Information Value Date Recorded Sex Assigned at Not on file Legal Sex Female 11:50 AM EDT Gender Identity Not on file Sexual Orientation Not on file Plan of Treatment Health Maintenance Due Date Last Done Comments Hepatitis C Virus Screening 1988 HIV Screening 2001 DTaP/Tdap/Td Vaccines (1 - Tdap) 2007 Hepatitis B Vaccines (1 of 3 - 19+ 3-dose series) 2007 COVID-19 Vaccine ( - 2024-2 6 season) 2025 HPV Vaccines (No Doses Required) Completed Pneumococcal Vaccine: Pediat roxy (0-5 Years) and At-Risk Patients (6 to 49 Years) Aged Out No longer eligible b ased on patient's age to complete this topic
[2025-08-10 19:26] LABS: Alanine Aminotransferase 13 U/L (0-31); Albumin Level 4.3 g/dL (3.5-5.0); Alkaline Phosphatase 64 U/L (39-117); Anion Gap 13 (12-20); Aspartate Amino Transferase 24 U/L (5-31); Blood Urea Nitrogen 12 mg/dL (9-16); Calcium 9.7 mg/dL (8.4-10.2); Carbon Dioxide 24 mmol/L (22-29); Chloride 104 mmol/L (96-108); Creatinine Clr Calc Pharmacy 116.5; Estimated Glomerular Filt Rate > 60; Magnesium 2.1 mg/dL (1.6-2.6); Potassium 4.5 mmol/L (3.3-5.1); Sodium 136 mmol/L (135-145); Total Protein 8.1 g/dL (6.5-8.0)
[2025-08-10 21:28] VITALS: BP 136/68; PULSE 76; RESP 16; TEMP 36.9; O2SAT 95
[2025-08-10 21:51] LABS: Resp Syncy Virus RNA Qual PCR NEGATIVE (Negative); SARS COV2 PCR INHOUSE NEGATIVE (Negative)
== END 2025-08-10 21:41 | disposition home or self-care (01) ==
PROVIDERS: Physician Assistant; Emergency Provider Emergency Medicine; PCP Physician Assistant Medical
DX: O21.9 Vomiting of pregnancy, unspecified (principal); Z3A.09 9 weeks gestation of pregnancy; Z03.818 Encounter for observation for suspected exposure to other biological agents ruled out
CPT/HCPCS: 36415; 76815; 80048; 80076; 83735; 84702; 85025; 87637; 99283; 99284